=== PATIENT | male | born 1955 | race Caucasian/White ===

== ENCOUNTER → 2024-01-04 | Outpatient (CLI) | payer OTHER, SELFPAY ==
[2024-01-04 11:26] LABS: PSA,Total - Annual Screen 2.12 ng/mL (0.00-4.00)
== END | disposition home or self-care (01) ==
LOC: LAB 10:33
PROVIDERS: PCP Nurse Practitioner Family; Referring Provider Urology; Visit Provider Urology
DX: Z12.5 Encounter for screening for malignant neoplasm of prostate (principal)
CPT/HCPCS: 36415; 84153; G0103

== ENCOUNTER 2025-05-05 07:38 | Day surgery (SDC) | payer OTHER, SELFPAY ==
--- NOTE | 2025-05-02 17:00 | PAT.ANE_ITS ---
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 When Was Last Pacemaker Check QUESTION #4 FULL TEXT: You/Your Family Experience fever (hyperthermia) with Anesthesia Last Oral Intake Last Oral intake: Last Oral Intake NPO since Meds taken in AM with sips of water? 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 Female Yes 05/02/25 11:45 HX of Motion Sickness No 05/02/25 11:45 HX of N/V After Surgery No 05/02/25 11:45 Non-Smoker No 05/02/25 11:45 Duration of Surgery greater Yes 05/02/25 11:45 than 60 minutes Number of Risk Factors 2 05/02/25 11:45 PONV Score Moderate Risk 05/02/25 11:45 Respiratory Assessment Respiratory Assessment - multiple drum sander helper: Respiratory Tract Infection Hx - multiple drum sander helper Hx Respiratory Tract Infection No 05/02/25 11:45 STOP Sleep Apnea STOP Sleep Apnea - multiple drum sander helper: STOP Sleep Apnea - multiple drum sander helper Hx Hypertension No 05/02/25 11:45 Hx Sleep Apnea No 05/02/25 11:45 CPAP BIPAP Do you snore loudly (louder Yes 05/02/25 11:45 than talking or can be heard Do you often feel tired/ No 05/02/25 11:45 fatigued/ sleepy during daytime? Has anyone observed you stop No 05/02/25 11:45 breathing during sleep? STOP Results Negative 05/02/25 11:45 QUESTION #5 FULL TEXT : Do you snore loudly (louder than talking or can be heard through closed doors)? 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 Specify any problems Hx of Preganancy in last 3 N/A 05/02/25 11:45 Months Nurse Filling Out Transfusion [email or web address] 05/02/25 11:45 & Questions: Date: 05/02/25 05/02/25 11:45 Time: 11:52 05/02/25 11:45 Patient unable to answer at this time (ie. confused, unrespo /Reproduction History /Reproductive History - multiple drum sander helper: /Reproductive Hx- multiple drum sander helper Hx Now Gestational Age (in weeks): EDC: Hx Hx Para Hx Section SAB Does the father of the baby or his family experience fever w Father of the baby Malignant Hypertension history comment PFSH Medical History (Updated 05/02/25 @ 12:01 by Jostin Calderon) Wears glasses Ambulates with cane BPH (benign prostatic hyperplasia) Smoker Leg cramps History of echocardiogram Hemochromatosis Home Medications ?Medication ?Instructions ?Recorded ?Last Taken ?Type lactobacillus combination no.4 3 3,000 mmu cells PO DA DL 05/02/25 Unknown History billion cell capsule (Probiotic) multivitamin 1 tab PO DAILY 05/02/25 Unkn own History tamsulosin 0.4 mg capsule 0.4 mg PO QHS 05/02/25 Unkno wn History turmeric 400 mg capsule 400 mg PO DAILY 05/02/25 Unk nown History Allergy/AdvReac Type Severity Reaction Status Date / Time No Known Allergies Allergy Verified 05/02/25 11:43 Surgical History (Updated 05/02/25 @ 12:01 by Jostin Calderon) History of ankle surgery Social History Smoking Status: Never smoker Audit: Pertinent Findings Pertinent Findings Consult pertinent findings: Hematology note 05/01/2025. 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 Ferritin 1819. Recommendations baseline labs today. Liver MRI and echo. Plan weekly phlebotomy with serial ferritin measurements to guide overall frequency of phlebotomy. I see no reason this should interfere with planned foot surgery. Recommendation Anesthesia Recommendation Anesthesia recommendation: OPTIMIZED for anesthesia
[2025-05-04 14:37] LABS: Magnesium 2.2 mg/dL (1.5-2.2)
[2025-05-05] VITALS (11 sets, daily range): BP systolic 104–132; BP diastolic 69–85; PULSE 47–58; RESP 14–16; TEMP 36.1–36.9; O2SAT 97–100; BMI 24.8
--- OUTSIDE RECORDS SUMMARY | 2025-05-05 07:53 | XMS RPT_ITS | CCD ---
Author Organization [facility] Inform ion Partnership [facility] Care Team Providers Care Real Estate Representative Name Role Phone PRITI YE, NIRMAL Palencia Unavailable ORTHOPEDICS, SHAMEKA Unavailable ORTHOPEDICS, GENERAL Unavailable Unavailable GEETHA Unavailable Unavailable Connie VAIL, Kalyani Unavailable Unavailable PAIGE YE, BRENDA Chowdhury Unavailable [phone] Denice Miller Unavailable Unavailable Antonia ELLINGTON MD Unavailable Leah Santamaria Unavailable Unavailable MERARI HERMAN Unavailable Unavailable Unavailable Unavailable MEREDITH ALLEN-ROSALINA Juan Unavailable ROSALINA MARTINEZ Unavailable Unav ailable Antonia ELLINGTON Attending Unavailable Antonia ELLINGTON Consulting Unavailable Antonia ELLINGTON Primary Care Unavailable Antonia ELLINGTON Admitting Unavailable PROVIDER, UNKNOWN Consulting Unavailable PROVIDER, UNKNOWN Consulting Unavailable PROVIDER, UNKNOWN Consulting Unavailable HEMATOLOGY, GENERAL Unavailable Unavailable Valentin Mcleod Attending Unavailable Meredith OSEGUERA, Rosalina Primary Care Unavailab le Medications Current Medications Medication Drug Class(es) Dates Sig (Normalized) Sig (Original) tamsulosin hydrochloride 0.4 mg oral capsule (17 sources) alpha-Adrenergic Bushra Flomax 0.4 mg capsule ; 1 daily (0.4 mg) Completed/Discontinued Medications Medication Drug Class(es) Dates Sig (Normalized) Sig (Original) amoxicillin 500 mg oral capsule (20 sources) Penicillin-class Antibacterial Start: 07-15-2021 End: 07-22-2021 take 1 capsule by mouth three times daily Amoxicillin 500 MG Oral Capsule ; 1 (one) Capsule three times daily for 7 days Quantity: 21 {Capsule} Refills: 0 Ordered: 03-Jan-2022 MD NIRMAL MARCOS Start: 15-Jul-2021 End: 22-Jul-2021 Status: Inactive Start: 09-28-2013 End: 10-08-2013 take 1 capsule by mouth three times daily AMOXICILLIN, 500MG (Oral Capsule) ; 1 (one) Capsule Capsule three times daily for 10 days Quantity: 30 {Capsule} Refills: 0 Ordered: 09-May-2014 MD Antonia ELLINGTON Start: 28-Sep-2013 End: 08-Oct-2013 Status: Inactive Start: 01-05-2012 End: 01-26-2012 take 1 tablet by mouth three times daily AMOXICILLIN, 500MG (Oral Tablet) ; 1 Tablet three times daily for 0 days Quantity: 42 {Tablet} Refills: 0 Ordered: 26-Jan-2012 GENNA Hutson Start: 05-Jan-2012 End: 26-Jan-2012 Status: Inactive amoxicillin 875 mg / clavulanate 125 mg oral tablet (20 sources) Penicillin-class Antibacterial Start: 10-16-2023 End: 10-26-2023 amoxicillin 875 mg-potassium clavulanate 125 mg tablet ; 1 (one) Tablet two times daily for 10 days Quantity: 20 {Tablet} Refills: 0 Ordered: 23-Nov-2023 SONNY HASTINGS Start: 16-Oct-2023 End: 26-Oct-2023 Status: Inactive azithromycin 250 mg oral tablet (20 sources) Macrolide Antimicrobial Start: 06-25-2017 End: 06-30-2017 Azithromycin 250 MG Oral Tablet ; 2 (two) Tablet on day one, then 1 tablet daily for 4 days for 5 days Quantity: 6 {Tablet} Refills: 0 Ordered: 04-Jun-2020 MD NIRMAL MARCOS Start: 25-Jun-2017 End: 30-Jun-2017 Status: Inactive Start: 09-28-2013 End: 10-03-2013 AZITHROMYCIN, 250MG (Oral Ta blet) ; 2 x 1 then 1 x 4 Tablet Tablet daily for 5 days Quantity: 6 {Tablet} Refills: 0 Ordered: 03-Oct-2013 Start: 28-Sep-2013 End: 03-Oct-2013 Status: Inactive Comments: take two tablets day one and then one tablet daily for 4 days Start: 09-02-2010 End: 01-05-2012 AZITHROMYCIN, 250MG (Oral Ta blet) ; Tablet daily for 0 days Quantity: 6 {Tablet} Refills: 0 Ordered: 05-Jan-2012 Start: 02-Sep-2010 End: 05-Jan-2012 Status: Inactive Comments: take two tablets day one and then one tablet daily for 4 days Comment on above: take two tablets day one and then one tablet daily for 4 days cefprozil 500 mg oral tablet (20 sources) Cephalosporin Antibacterial Start: End: take 1 tablet by mouth twice daily CEFPROZIL, 500MG (Oral Tablet) ; 1 (one) Tablet two times daily for 14 days Quantity: 28 {Tablet} Refills: 0 Ordered: 28-Sep-2013 MD Antonia ELLINGTON Start: 19-Oct-2012 End: 02-Nov-2012 Status: Inactive cephalexin 500 mg oral capsule (20 sources) Cephalosporin Antibacterial Start: End: take 1 capsule by mouth four times daily CEPHALEXIN, 500MG (Oral Capsule) ; 1 (one) Capsule qid for 7 days Quantity: 28 {Capsule} Refills: 0 Ordered: 09-May-2014 MD Antonia ELLINGTON Start: 01-Oct-2013 End: 08-Oct-2013 Status: Inactive codeine phosphate 2 mg/ml / guaiFENesin 20 mg/ml oral solution (20 sources) Opioid Agonist Start: 011 End: 011 MYTUSSIN AC, 100-10MG/5ML (Oral Syrup) ; 1 (one) Teaspoon(s) four times daily, as needed for 5 days Quantity: 1 {bottle(s)} Refills: 0 Ordered: 09-Sep-2010 MD Antonia ELLINGTON Start: 02-Sep-2010 End: 07-Sep-2010 Status: Inactive Comments: Medication taken as needed. Comment on above: Medication taken as needed. fluticasone propionate 0.05 mg/actuat metered dose nasal spray (20 sources) Corticosteroid Start: End: take 2 spray(s) by inhalation once daily Fluticasone Propionate 50 MCG/ACT Nasal Suspension ; 2 (two) sprays daily for 30 days Quantity: 1 {Inhaler} Refills: 4 Ordered: 25-Jun-2017 GENNA Hutson Start: 28-Sep-2013 End: 25-Jun-2017 Status: Inactive 12 hr guaiFENesin 600 mg / pseudoephedrine hydrochloride 60 mg extended release oral tablet (20 sources) alpha-Adrenergic Agonist Start: 018 End: Mucinex D 60-600 mg oral Tablet, Extended Release 12 hr ; 1 (one) Tablet two times daily, as needed for 0 days Quantity: 18 {Tablet} Refills: 0 Ordered: 29-May-2022 Start: 15-Jul-2021 End: 29-May-2022 Status: Inactive Comments: Medication taken as needed. Start: 10-19-2012 End: 10-28-2012 MUCINEX D, 120-1200MG (Oral Tablet Extended Release 12 Hour) ; 1 (one) Tablet ER 12HR two times daily, as needed for 9 days Quantity: 18 {Tablet_ER_12HR} Refills: 0 Ordered: 28-Sep-2013 MD Antonia ELLINGTON Start: 19-Oct-2012 End: 28-Oct-2012 Status: Inactive Comments: Medication taken as needed. Comment on above: Medication taken as needed. hydrocortisone 10 mg/ml / neomycin 3.5 mg/ml / polymyxin b 43031 unt/ml otic suspension (20 sources) Aminoglycoside Antibacterial, Polymyxin-class Antibacterial, Corticosteroid Start: 01-05-2012 End: 01-26-2012 INZGSLZC-EYXKLAHOG-PD , 3.5-31870-0 (Otic Suspension) ; 4-5 drop(s) in left ear at bedtime for 0 days Quantity: 5 {Milliliter} Refills: 0 Ordered: 26-Jan-2012 GENNA Hutson Start: 05-Jan-2012 End: 26-Jan-2012 Status: Inactive predniSONE 10 mg oral tablet (20 sources) Start: 05-29-2022 End: 06-10-2022 predniSONE 10 mg oral tablet ; 4 Tablets days 1,2,3; 3 tablets days 4,5,6: 2 tablets days 7,8,9: 1 tablet days 10,11,12 for 12 days Quantity: 30 {Tablet} Refills: 0 Ordered: 10-Jun-2022 MD NIRMAL MARCOS Start: 29-May-2022 End: 10-Jun-2022 Status: Inactive Comments: Take with food.medication to be dispensed in office Comment on above: Take with food.medic ation to be dispensed in office sulfamethoxazole 800 mg / trimethoprim 160 mg oral tablet (20 sources) Dihydrofolate Reductase Inhibitor Antibacterial, Sulfonamide Antimicrobial Bactrim DS 800 mg-160 mg tablet ; 1 twice daily (800-160 mg) Status: Inactive Comments: x 10 days Comment on above: x 10 days terbinafine 250 mg oral tablet (20 sources) Allylamine Antifungal Start: 11-25-2023 End: 02-02-2024 terbinafine HCL 250 mg tablet ; 1 (one) tablet daily for 42 days Quantity: 42 {Tablet} Refills: 1 Ordered: 02-Feb-2024 GENNA Hutson Start: 25-Nov-2023 End: 02-Feb-2024 Status: Inactive Problems Active Problems Problem Classification Problem Date Documented Date Episodic/Chronic Acquired foot deformities (10 sources) Hallux valgus (acquired), left foot; Translations: [Hallux valgus (acquired)] 04-21-2025 Chronic Acute bronchitis (20 sources) Acute bronchitis; Translations: [Acute bronchitis, unspecified] 09-02-2010 Episodic Administrative/social admission (20 sources) Patient encounter status; Translations: [Counseling, unspecified] 10-16-2023 Episodic Diseases of white blood cells (20 sources) Leukocytosis; Translations: [Elevated white blood cell count, unspecified] 02-02-2024 Chronic Disorders of teeth and jaw (20 sources) Abscess of hard palate; Translations: [Inflammatory conditions of jaws] 10-01-2013 Episodic Comment on above: right Immunizations and screening for infectious disease (10 sources) Requires diphtheria, tetanus and pertussis vaccination; Translations: [Encounter for immunization] 04-21-2025 Episodic Mycoses (20 sources) Tinea pedis; Translations: [Tinea pedis] 11-25-2023 Episodic Other connective tissue disease (20 sources) Other symptoms and signs involving the musculoskeletal system; Translations: [Other musculoskeletal symptoms referable to limbs] 05-29-2022 Episodic Other connective tissue disease (20 sources) Olecranon bursitis; Translations: [Olecranon bursitis, unspecified elbow] 09-03-2010 Episodic Other connective tissue disease (20 sources) Bursitis of elbow; Translations: [Other bursitis of elbow, right elbow] 10-16-2023 Episodic Other ear and sense organ disorders (2 sources) Impacted cerumen of bilateral ears; Translations: [Impacted cerumen, bilateral] 10-16-2023 Episodic Other liver diseases (20 sources) Increased bilirubin level; Translations: [Unspecified jaundice] 02-02-2024 Episodic Other nutritional; endocrine; and metabolic disorders (20 sources) Hereditary hemochromatosis; Translations: [Hereditary hemochromatosis] Onset: 01-14-2024 02-09-2024 Chronic Comment on above: 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 Other upper respiratory infections (20 sources) Chronic sinusitis; Translations: [Chronic sinusitis, unspecified] 06-25-2017 Chronic Other upper respiratory infections (20 sources) Acute upper respiratory infection; Translations: [Acute upper respiratory infection, unspecified] 09-28-2013 Episodic Otitis media and related conditions (20 sources) Otitis media of left ear; Translations: [Otitis media, unspecified, left ear] 01-26-2012 Episodic Residual codes; unclassified (20 sources) Family history of hemochromatosis; Translations: [Family history of other endocrine, nutritional and metabolic diseases] 02-02-2024 Episodic Screening and history of mental health and substance abuse codes (10 sources) Ex-smoker; Translations: [Personal history of nicotine dependence] 04-21-2025 Episodic Urinary tract infections (20 sources) Acute urinary tract infection; Translations: [Urinary tract infection, site not specified] 11-25-2023 Episodic Past or Other Problems Problem Classification Problem Date Documented Da te Episodic/Chronic Headache; including migraine (20 sources) Headache; including migraine 06-25-2017 Otitis media and related conditions (20 sources) Otitis media and related conditions 01-26-2012 Unclassified (20 sources) Ear Discharge - The history today is reported by the patient. Symptoms include ear discharge (yellow), ear fullness, ear itching, ear pain and dizziness (at times). Symptoms are located in both ears. Onset was 1 month(s) ago. Associated symptoms do not include cough, fever, headache, nasal congestion or sore throat. 10-16-2023 Unclassified (19 sources) Follow-up after ER visit - The diagnosis of right side sciatica. The ER visit was at [facility]. Date:05/20/22. Note for Follow-up after ER visit: Pt has had right leg pain/sciatica for about 6-7 weeks. It was getting worse and he went to ER. They gave him prednisone, Flexeril, and Percocet. He is feeling a little better, but still has some pain and his right leg is very weak. He is using crutches to walk. 06-13-2022 Unclassified (19 sources) [ADDITIONAL REASON] Transition into care - The patient is transitioning into care from an emergency room and a summary of care was reviewed. 06-13-2022 Unclassified (20 sources) Ear blocked - The onset of the blocked ear has been acute and has been occurring in a persistent pattern for 2 weeks. It affects both ears (left worse than right) . There has been associated ear discharge (yellow) and nasal congestion, while there has been no fever. 07-15-2021 Unclassified (20 sources) Mouth pain - Note for Mouth pain: Recheck of hard palate abscess. Saw Dr Gibson on 09/28/13, given Amoxicillin and Rocephin. Patient reports improvement, less painful. Here for exam. 10-01-2013 Unclassified (20 sources) Sinus pain - The sinus pain has been occurring for 3 days (cough x 1 week). The pain is located in the right side. There has been associated cough (yellow), ear pain (right), fever, low grade fever, sore throat and swollen lymph glands, while there has been no runny nose. Note for Sinus pain: C/o swollen gums. 09-28-2013 Unclassified (20 sources) Sinus pain - The sinus pain has been occurring for 1 month. It is characterized as a pressure sensation. There has been associated runny nose, while there has been no cough. Note for Sinus pain: Here for exam. 10-19-2012 Unclassified (20 sources) Ear Discharge - Symptoms include ear discharge, ear fullness (decreased hearing), ear itching and ear pain. Symptoms are located in the left ear. Onset was 3 day(s) ago. Note for Ear Discharge: . 01-05-2012 Unclassified (20 sources) Cough - The onset of the cough has been acute and has been occurring for 1 week. Note for Cough: also check red swollen left elbow. No injury. 09-02-2010 Unclassified (7 sources) Transition into care - The patient is transitioning into care from an emergency room and a summary of care was reviewed. 06-13-2022 Unclassified (7 sources) [ADDITIONAL REASON] Follow-up after ER visit - The diagnosis of right side sciatica. The ER visit was at [facility]. Date:05/20/22. Note for Follow-up after ER visit: Pt has had right leg pain/sciatica for about 6-7 weeks. It was getting worse and he went to ER. They gave him prednisone, Flexeril, and Percocet. He is feeling a little better, but still has some pain and his right leg is very weak. He is using crutches to walk. 06-13-2022 Unclassified (20 sources) Follow-up after ER visit - The patient reports feeling unchanged. Note for Follow-up after ER visit: Pt seen in [place] ER 11/23/23 for UTI symptoms, unable to urinate. Navarro cath inserted. Pt given IV Rocphin and discharged with Bactrim DS BID x [address]. [address] Elaine for follow up-Pt still has navarro catheter in. Abdominal CT done in ER 11-25-2023 Unclassified (17 sources) wants genetic testing - family history of hemochromatosis 02-02-2024 Unclassified (13 sources) !Patient notification of lab results - Dr. Ellington. The test(s) that you had done were/was blood work (Your ferritin was very high at 1468 so I think it's likely that you also have hereditary hemochromatosis. It may take 6 weeks or more for the gene test to get back.Please let us know if you would like to see the specialist sooner or wait until the genetic test is back). You should call our office if you have any questions. 02-04-2024 Unclassified (11 sources) !Patient notification of lab results - Dr. Ellington. The test(s) that you had done were/was blood work (Your test showed that you carry 2 copies of the gene mutation for hemochromatosis and in light of your ferritin level, it appears that you do have the disease. Please let us know if you have a preference as to which radiation therapy technician or financial officer we refer you for evaluation and to start treatment). You should call our office if you have any questions. 02-09-2024 Unclassified (5 sources) Pre-Op Visit - The procedure scheduled is a arthrodesis of the first metatarsel phalangeal joint and bone graft harvest left leg on 05-05-25. The surgeon for the procedure will be Dr Valentin Mcleod. 04-21-2025 Unclassified (2 sources) !Patient notification of lab results - Dr. Ellington. The test(s) that you had done were/was blood work (Your ferritin was 1819 (most hematologists will start treatment at 300). Because there can be cases where you don't recover as well from surgery if your hemochromatosis is not controlled, I am recommending that you see a financial officer to get cleared from the hematology standpoint. They may recommend therapeutic phlebotomy until you are stable at a better ferritin level before you proceed with the surgery. Please let us know which financial officer you would like to see (perhaps the one who sees one or both of your sons?)). You should call our office if you have any questions. 04-23-2025 Results Test Name Value Interpretation Reference Range Facil ity FERRITIN [CCL]on 04-23-2025 Ferritin [Mass/Vol] 1819.0 ng/mL High 30.3-565.7 [facility] Comment on above: Result Comment: [facility] [address] [place] [address] Enzo Dickerson III, M.D. [id number] Performed By: #### 2 [id number] #### [address] [address] CBC + DIFFon 04-21-2025 Baso # 0.03 x10EE3/UL Normal 0.00 - 0.10 [facility] Comment on above: Performed By: #### 2 [id number] #### [address] [address] Basophils/100 WBC (Bld) 0.3 % Normal 0.0 - 2.0 % [facility].; [facility]. Work Phone: Comment on above: Performed By: #### 2 [id number] #### [facility],[address] [place] [address] CBC + DIFF Normal [facility] Comment on above: Result Comment: CBC- COMPLETE BLOOD COUNT Performed By: #### 2 [id number] #### [facility],[address] [place] [address] EO # 0.32 x10EE3/UL Normal 0.00 - 0.50 [facility] Comment on above: Performed By: #### 2 [id number] #### [facility],[address] [place] [address] Eosinophils/100 WBC (Bld) 4.1 % Normal 0.0 - 7.0 % [facility], [facility], [facility] Work Phone: Comment on above: Performed By: #### 2 [id number] #### [facility],[address] [place] [address] Erythrocyte distribution width (RBC) [Ratio] 12.9 % Normal 12.0 - 15.6 % [facility], [facility].; [facility] [employer] [facility] Work Phone: Comment on above: Performed By: #### 2 97305 #### [address] [address] Hematocrit (Bld) [Volume fraction] 41.5 % Normal 40.0 - 52.0 % [facility] [employer] [facility] [place] [facility] Work Phone: Comment on above: Performed By: #### 2 72555 #### [address] [address] Hemoglobin (Bld) [Mass/Vol] 14.5 g/dL Normal 13.0 - 17.5 g/dL [facility] [employer] [facility] [employer] [employer] [facility] [employer] Work Phone: Comment on above: Performed By: #### 2 92789 #### [facility],[address] [place] [address] Lymph # 2.86 x10EE3/UL High 0.80 - 2.80 [facility] Comment on above: Performed By: #### 2 47874 #### [facility],[address] [place] [address] Lymphocytes/100 WBC (Bld) 36.0 % Normal 20.0 - 45.0 % [facility].; [facility], [facility]. Work Phone: Comment on above: Performed By: #### 2 51670 #### [place] [address] MANUAL DIFF N/A Normal [facility].; [facility], [facility]. Work Phone: Comment on above: Performed By: #### 2 69679 #### [place] [id number] MCH (RBC) [Entitic mass] 32 pg Normal 27 - 33 pg [facility].; [facility], [facility]. Work Phone: Comment on above: Performed By: #### 2 36349 #### [place] [address] MCHC 35 X10 3 Normal 32 - 36 [facility] Comment on above: Performed By: #### 2 93214 #### [facility],[address] [place] [address] MCV (RBC) [Entitic vol] 92 fL Normal 81 - 98 fL [facility].; [facility], [facility]. Work Phone: Comment on above: Performed By: #### 2 28010 #### [facility],[address] [place] [address] Hatillo # 0.63 x10EE3/UL Normal 0.20 - 1.00 [facility] Comment on above: Performed By: #### 2 10579 #### [facility],[address] [place] [address] MONOS % 8.0 % Normal 0.0 - 10.0 [facility] Comment on above: Performed By: #### 2 36101 #### [facility],[address] [place] [address] Morphology Nikolai (Bld) [Interp] N/A Normal [facility].; [facility], [facility]. Work Phone: Comment on above: Performed By: #### 2 96025 #### [address] [address] Neut # 4.10 x10EE3/UL Normal 1.50 - 7.10 [facility] Comment on above: Performed By: #### 2 62981 #### [address] [address] Neutrophils/100 WBC (Bld) 51.6 % Normal 46.0 - 76.0 % [facility]; [facility], [facility]. Work Phone: Comment on above: Performed By: #### 2 12744 #### [address] [address] PLATELET 226 x10EE3/UL Normal 150 - 450 [facility] Comment on above: Performed By: #### 2 23903 #### [address] [address] Platelet mean volume (Bld) [Entitic vol] 9.4 fL Normal 6.4 - 10.5 fL [facility].; [facility], [facility]. Work Phone: Comment on above: Result Comment: AUTO MATED DIFFERENTIAL Performed By: #### 2 60329 #### [facility] [place] [address] RBC 4.51 x 10EE6/UL Normal 4.50 - 6.00 [facility] Comment on above: Performed By: #### 2 32781 #### [facility],[address] [place] [address] WBC 7.9 x 10EE3/UL Normal 4.5 - 10.8 [facility] Comment on above: Performed By: #### 2 00301 #### [facility],[address] [place] [address] Ferritin SerPl-ncon 2024 Ferritin [Mass/Vol] 1819.0 ng/mL Abnormal 30.3 - 5 65.7 ng/mL [facility] CenterBB[facility] [employer]; [facility] Work Phone: Comment on above: Order Comment: Speci men Type: BLOOD SPECIMEN Ordering Facility: [facility] Address: [address] [place] [address] Performed By: #### 2 [id number] #### [facility] CLIA [id number] [address] [place] [address] [place] HEMOGLOBIN A1C (POM)on 04-21 Glucose [Mass/Vol] 96.8 mg/dL High 0.0 - 0.0 [facility] Comment on above: Result Comment: BLDo HEMOGLOBIN A1C REFERENCE RANGESBLDo Suggested Diagnosis HbA1c(%) HbA1C (mmol/mol Diabetic >/=6.5 >/=48 Prediabetes 5.7 - 6.4 39 - 47 Normal <5.7 <39 Performed By: #### 2 12122 #### [facility],[address] [place], [place] [id number] HbA1c (Bld) [Mass fraction] 5.0 % Normal 0.0 - 6.5 % [facility]; [facility]. Work Phone: Comment on above: Performed By: #### 2 77007 #### [facility],[address] [place] [address] Laboratory - Chemistry and C hemistry - challengeon 04-21-2025 25-hydroxyvitamin D3 [Mass/Vol] 29.50 ng/mL Abnormal 30.00 - 100 ng/mL [facility].; [facility]. Work Phone: Average glucose Estimated from glycated hemoglobin (Bld) [Mass/Vol] 96.8 mg/dL Abnormal 0.0 - 0.0 mg/dL [facility].; [facility], [facility]. Work Phone: Laboratory - Hematology and Cell countson 04-21-2025 Basophils (Bld) [#/Vol] 0.03 {x10EE3/UL} Normal 0.00 - 0.10 {x10EE3/UL} [facility].; [facility], [facility]. Work Phone: Eosinophils (Bld) [#/Vol] 0.32 {x10EE3/UL} Normal 0.00 - 0.50 {x10EE3/UL} [facility].; [place] [employer] [facility], [facility]. Work Phone: Lymphocytes (Bld) [#/Vol] 2.86 {x10EE3/UL} Abnormal 0.80 - 2.80 {x10EE3/UL} [facility].; [facility], [facility]. Work Phone: MCHC (RBC) [Mass/Vol] 35 {X10_3} Normal 32 - 36 {X10_3 } [facility].; [facility], [facility]. Work Phone: Monocytes (Bld) [#/Vol] 0.63 {x10EE3/UL} Normal 0.20 - 1.00 {x10EE3/UL} [facility].; [facility], [facility]. Work Phone: Monocytes/100 WBC (Bld) 8.0 % Normal 0.0 - 10.0 % [facility].; [facility]. Work Phone: Neutrophils (Bld) [#/Vol] 4.10 {x10EE3/UL} Normal 1.50 - 7.10 {x10EE3/UL} [facility].; [facility]. Work Phone: Platelets (Bld) [#/Vol] 226 {x10EE3/UL} Normal 150 - 450 {x10EE3/UL} [facility].; [facility]. Work Phone: RBC (Bld) [#/Vol] 4.51 {x_10EE6/UL} Normal 4.50 - 6.00 {x_10EE6/UL} [facility].; [facility]. Work Phone: WBC (Bld) [#/Vol] 7.9 {x_10EE3/UL} Normal 4.5 - 10.8 {x_10EE3/UL} [facility].; [facility], [facility]. Work Phone: No Panel Informationon 04-21 CBC + DIFF Normal [facility] HospitalComet [employer]; [facility]. Work Phone: Ferritin SerPl-mCnc 1819.0 ng/mL Abnormal 30.3 - 5 65.7 ng/mL [facility].; [facility]. Work Phone: Performing Lab See Note Normal [facility]; [facility], [facility]. Work Phone: VITAMIN D, 25 HYDROXYon 11-0 VitD 29.50 ng/mL Low 30.00 - 100 [facility] Comment on above: Result Comment: 25-O HD3 indicates both endogenous production and supplementation. 25-OHD2 is an indicator of exogenous sources, such as diet or supplementation. Therapy is based on measurement of Total 25-OHD, with levels <20 ng/mL indicative of Vitamin D deficiency, while levels between 20 ng/mL and 30 ng/mL suggest insufficiency. Optimal levels are >=30ng/mL. Vitamin D, 25-OH D3 Not Established Vitamin D, 25-OH D2 Not Established Performed By: [id number] [facility],[address] [place], [place] [id number] Laboratory - Chemistry and C hemistry - challengeon 02-02-2024 Albumin [Mass/Vol] 4.2 g/dL Normal 3.9 - 4.9 g/dL [facility], [facility]; [facility], [facility] ALP [Catalytic activity/Vol] 110 U/L Normal 44 - 121 [iU]/L [facility].; [facility], [facility]. ALT [Catalytic activity/Vol] 16 U/L Normal 0 - 44 [iU]/L [facility].; [facility], [facility]. AST [Catalytic activity/Vol] 18 U/L Normal 0 - 40 [iU]/L [facility].; [facility], [facility]. Bilirubin [Mass/Vol] 0.5 mg/dL Normal 0.0 - 1.2 mg/dL [facility]; [facility], [facility]. Calcium [Mass/Vol] 9.2 mg/dL Normal 8.6 - 10. 2 mg/dL [facility].; [facility], [facility]. Chloride [Moles/Vol] 106 mmol/L Normal 96 - 106 mmol/L [facility].; [facility], [facility]. CO2 [Moles/Vol] 22 mmol/L Normal 20 - 29 mmol/L [facility].; [facility], [facility] Creatinine [Mass/Vol] 0.64 mg/dL Abnormal 0.76 - 1.27 mg/dL [facility]; [facility] Ferritin [Mass/Vol] 1468 ng/mL Abnormal 30 - 400 ng/mL [facility]; [facility] Globulin (S) [Mass/Vol] 2.3 g/dL Normal 1.5 - 4.5 g/dL [facility]; [facility] Glucose [Mass/Vol] 96 mg/dL Normal 70 - 99 mg/dL [facility]; [facility] Iron [Mass/Vol] 106 ug/dL Normal 38 - 169 ug/dL [facility]; [facility] Potassium [Moles/Vol] 4.3 mmol/L Normal 3.5 - 5.2 mmol/L [facility]; [facility] Protein [Mass/Vol] 6.5 g/dL Normal 6.0 - 8.5 g/dL [facility]; [facility] Sodium [Moles/Vol] 141 mmol/L Normal 134 - 144 mmol/L [facility]; [facility] Urea nitrogen [Mass/Vol] 16 mg/dL Normal 8 - 27 mg/dL [facility]; [facility] Urea nitrogen/Creatinine [Mass ratio] 25 mg/mg Abnormal 10 - 24 [facility]; [facility] Laboratory - Hematology and Cell countson 02-02-2024 Basophils (Bld) [#/Vol] 0.0 10*3/uL Normal 0.0 - 0.2 {x10E3/uL} [facility]; [facility] Basophils/100 WBC (Bld) 1 % Normal [facility]; [facility] Eosinophils (Bld) [#/Vol] 0.4 10*3/uL Normal 0.0 - 0.4 {x10E3/uL} [facility]; [facility] Eosinophils/100 WBC (Bld) 5 % Normal [facility]; [facility] Erythrocyte distribution width (RBC) [Ratio] 13.1 % Normal 11.6 - 15.4 % [facility]; [facility], [facility] Hematocrit (Bld) [Volume fraction] 43.0 % Normal 37.5 - 51.0 % [facility]; [facility] Hemoglobin (Bld) [Mass/Vol] 14.6 g/dL Normal 13.0 - 17.7 g/dL [facility]; [facility], [facility] Immature granulocytes (Bld) [#/Vol] 0.0 10*3/uL Normal 0.0 - 0.1 {x10E3/uL} [facility].; [facility], [facility] Immature granulocytes/100 WBC (Bld) 0 % Normal [facility]; [facility], [facility] Lymphocytes (Bld) [#/Vol] 3.0 10*3/uL Normal 0.7 - 3.1 {x10E3/uL} [facility].; [facility], [facility] Lymphocytes/100 WBC (Bld) 38 % Normal [facility]; [facility], [facility] MCH (RBC) [Entitic mass] 31.7 pg Normal 26.6 - 33.0 pg [facility].; [facility], [facility]. MCHC (RBC) [Mass/Vol] 34.0 g/dL Normal 31.5 - 35.7 g/dL [facility].; [facility], [facility]. MCV (RBC) [Entitic vol] 94 fL Normal 79 - 97 fL [facility].; [facility], [facility] Monocytes (Bld) [#/Vol] 0.8 10*3/uL Normal 0.1 - 0.9 {x10E3/uL} [facility]; [facility], [facility] Monocytes/100 WBC (Bld) 10 % Normal [facility].; [facility] Neutrophils (Bld) [#/Vol] 3.7 10*3/uL Normal 1.4 - 7.0 {x10E3/uL} [facility].; [facility] Neutrophils/100 WBC (Bld) 46 % Normal [facility].; [facility] Platelets (Bld) [#/Vol] 209 10*3/uL Normal 150 - 450 {x10E3/uL} [facility].; [facility], [facility] RBC (Bld) [#/Vol] 4.60 10*6/uL Normal 4.14 - 5.8 0 {x10E6/uL} [facility].; [facility], [facility]. WBC (Bld) [#/Vol] 7.9 10*3/uL Normal 3.4 - 10.8 {x10E3/uL} [facility].; [facility], [facility] No Panel Informationon 02-01 Interpretation HFE (Hemochromatosis) Normal [facility]; [facility], [facility] Work Phone: INTERPRETATION (HEMDNA) Normal [facility].; [facility], [facility] Performing Lab See Note Normal [facility].; [facility], [facility] No Panel Informationon 01-03 PSA,TOT SCREEN 2.12 ng/mL Normal 0.00 - 4.00 ng/mL [facility].; [facility], [facility] Work Phone: Laboratory - Chemistry and C hemistry - challengeon 11-22-2023 Albumin [Mass/Vol] 3.8 g/dL Normal 3.4 - 5.0 g/dL [facility]; [facility] Work Phone: Albumin [Mass/Vol] 1.2 g/dL Normal 0.9 - 1.6 [facility]; [facility] Work Phone: ALT [Catalytic activity/Vol] 23 U/L Normal 16 - 63 U/L [facility]; [facility] Work Phone: Anion gap [Moles/Vol] 12 mmol/L Normal 10 - 20 mmol/L [facility]; [facility] Work Phone: AST [Catalytic activity/Vol] 21 U/L Normal 15 - 37 U/L [facility]; [facility] Work Phone: Bilirubin [Mass/Vol] Negative Normal [facility]; [facility] Work Phone: Bilirubin [Mass/Vol] 1.5 mg/dL Abnormal 0.2 - 1.0 mg/dL [facility]; [facility] Work Phone: Calcium [Mass/Vol] 9.0 mg/dL Normal 8.5 - 10. 1 mg/dL [facility]; [facility] Work Phone: Chloride [Moles/Vol] 101 mmol/L Normal 98 - 107 mmol/L [facility]; [facility] Work Phone: CO2 [Moles/Vol] 26.9 mmol/L Normal 21.0 - 32.0 mmol/L [facility]; [facility] Work Phone: Creatinine [Mass/Vol] 0.82 mg/dL Normal 0.70 - 1.30 mg/dL [facility]; [facility] Work Phone: CRP [Mass/Vol] 4.97 mg/dL Abnormal 0.00 - 0.90 mg/dL [facility]; [facility] Work Phone: GFR/1.73 sq M.predicted among blacks MDRD (S/P/Bld) [Vol rate/Area] mL/min/{1.73_m2} Normal 60 - 999 {ML/MINUTE} [facility]; [facility] Work Phone: GFR/1.73 sq M.predicted MDRD (S/P/Bld) [Vol rate/Area] mL/min/{1.73_m2} Normal 60 - 999 {ML/MINUTE} [facility]; [facility] Work Phone: Globulin (S) [Mass/Vol] 3.2 g/dL Normal 1.5 - 3.8 g/dL [facility]; [facility] Work Phone: Glucose [Mass/Vol] NORM Normal [facility]; [facility] Work Phone: Glucose [Mass/Vol] 101 mg/dL Normal 74 - 106 mg/dL [facility]; [facility] Work Phone: Lipase [Catalytic activity/Vol] 17.0 U/L Normal 15.0 - 78.0 U/L [facility]; [facility] Work Phone: pH (Bld) 6 [pH] Normal [facility]; [facility] Work Phone: Potassium [Moles/Vol] 3.7 mmol/L Normal 3.5 - 5.1 mmol/L [facility]; [facility] Work Phone: Protein [Mass/Vol] 15 g/dL Abnormal [facility]; [facility] Work Phone: Protein [Mass/Vol] 7.0 g/dL Normal 6.4 - 8.2 g/dL [facility]; [facility] Work Phone: Sodium [Moles/Vol] 136 mmol/L Normal 136 - 145 mmol/L [facility]; [facility] Work Phone: Urea nitrogen [Mass/Vol] 12 mg/dL Normal 7 - 18 mg/dL [facility]; [facility] Work Phone: Urea nitrogen/Creatinine [Mass ratio] 15 {ratio} Normal 0 - 30 {ratio} [facility]; [facility] Work Phone: Laboratory - Hematology and Cell countson 11-22-2023 Basophils (Bld) [#/Vol] 0.02 {x10EE3/UL} Normal 0.00 - 0.10 {x10EE3/UL} [facility]; [facility] Work Phone: Basophils/100 WBC (Bld) 0.1 % Normal 0.0 - 2.0 % [facility]; [facility] Work Phone: Eosinophils (Bld) [#/Vol] 0.20 {x10EE3/UL} Normal 0.00 - 0.50 {x10EE3/UL} [facility]; [facility] Work Phone: Eosinophils/100 WBC (Bld) 1.2 % Normal 0.0 - 7.0 % [facility]; [facility] Work Phone: Erythrocyte distribution width (RBC) [Ratio] 13.3 % Normal 12.0 - 15.6 % [facility]; [facility] Work Phone: Hematocrit (Bld) [Volume fraction] 44.7 % Normal 40.0 - 52.0 % [facility]; [facility] Work Phone: Hemoglobin (Bld) [Mass/Vol] 15.4 g/dL Normal 13.0 - 17.5 g/dL [facility]; [facility] Work Phone: Lymphocytes (Bld) [#/Vol] 1.69 {x10EE3/UL} Normal 0.80 - 2.80 {x10EE3/UL} [facility]; [facility] Work Phone: Lymphocytes/100 WBC (Bld) 9.8 % Abnormal 20.0 - 45.0 % [facility]; [facility] Work Phone: MCH (RBC) [Entitic mass] 32 pg Normal 27 - 33 pg [facility]; [facility] Work Phone: MCHC (RBC) [Mass/Vol] 34 {X10_3} Normal 32 - 36 {X10_3 } [facility]; [facility] Work Phone: MCV (RBC) [Entitic vol] 92 fL Normal 81 - 98 fL [facility]; [facility] Work Phone: Monocytes (Bld) [#/Vol] 1.62 {x10EE3/UL} Abnormal 0.20 - 1.00 {x10EE3/UL} [facility]; [facility] Work Phone: Monocytes/100 WBC (Bld) 9.4 % Normal 0.0 - 10.0 % [facility]; [facility] Work Phone: Morphology Nikolai (Bld) [Interp] N/A Normal [facility]; [facility] Work Phone: Neutrophils (Bld) [#/Vol] 13.65 {x10EE3/UL} Abnormal 1.50 - 7.10 {x10EE3/UL} [facility]; [facility] Work Phone: Neutrophils/100 WBC (Bld) 79.5 % Abnormal 46.0 - 76.0 % [facility]; [facility] Work Phone: Platelet mean volume (Bld) [Entitic vol] 9.1 fL Normal 6.4 - 10.5 fL [facility]; [facility] Work Phone: Platelets (Bld) [#/Vol] 180 {x10EE3/UL} Normal 150 - 450 {x10EE3/UL} [facility]; [facility] Work Phone: RBC (Bld) [#/Vol] 4.85 {x_10EE6/UL} Normal 4.50 - 6.00 {x_10EE6/UL} [facility].; [facility] Work Phone: WBC (Bld) [#/Vol] 500 10*3/uL Abnormal [facility].; [facility]. Work Phone: WBC (Bld) [#/Vol] 17.2 {x_10EE3/UL} Abnormal 4.5 - 10.8 {x_10EE3/UL} [facility].; [facility]. Work Phone: Laboratory - Microbiology an d Antimicrobial susceptibilityon 11-22-2023 Bacteria identified Cx Nom (U) See Note Abnormal [facility].; [facility]. Work Phone: Bacteria identified Cx Nom (Unsp spec) 3+ Normal [facility].; [facility] Work Phone: Laboratory - Specimen inform ationon 11-22-2023 Clarity (U) sl.cloudy Normal [facility].; [facility]. Work Phone: Color (U) yellow Normal [facility].; [facility]. Work Phone: Specimen type Nom (Spec) Catheter Normal [facility].; [facility] Work Phone: Laboratory - Urinalysison Crystals LM Nom (Urine sed) NONE Normal [facility].; [facility] Work Phone: Nitrite Ql (U) Positive Normal [facility].; [facility]. Work Phone: Yeast LM Ql (Urine sed) NONE Normal [facility].; [facility]. Work Phone: No Panel Informationon 11-21 AGE 68 {years} Normal [facility].; [facility]. Work Phone: ALK PHOS 114 U/L Normal 46 - 116 U/L [facility].; [facility]. Work Phone: Amorphous NONE Normal [facility].; [facility]. Work Phone: Blood 250 Abnormal [facility].; [facility]. Work Phone: Casts NONE Normal [facility].; [facility]. Work Phone: CBC + DIFF Normal [facility].; [facility] [facility]. Work Phone: CMP with eGFR Normal [facility].; [facility]. Work Phone: Epi Cells OCC Normal [facility].; [facility]. Work Phone: Ketone 5 Abnormal [facility] [employer] [facility].; [employer] [facility] [employer] [facility]. Work Phone: MANUAL DIFF N/A [employer] [facility] [employer] [facility] [employer].; [email or web address] [facility] [employer] [facility] [employer]. Work Phone: Microscopic SEE BELOW Normal [facility] [employer] [facility] Healthcare[facility].; [email or web address] Work Phone: Mucous NONE Normal [facility]; [facility] Work Phone: Rbc 0-5 Normal 0 - 3 [facility]; [facility] Work Phone: Sp Lostine 1.010 Normal [facility]; [facility] Work Phone: Urobilinog NORM Normal [facility]; [facility] Work Phone: Wbc 11-15 Normal 0 - 5 [facility]; [facility] Work Phone: Laboratory - Chemistry and C hemistry - challengeon 05-20-2022 Albumin [Mass/Vol] 3.8 g/dL Normal 3.4 - 5.0 g/dL [facility]; [facility] Work Phone: Albumin [Mass/Vol] 1.2 g/dL Normal 0.9 - 1.6 [facility]; [facility] Work Phone: ALT [Catalytic activity/Vol] 26 U/L Normal 16 - 63 U/L [facility]; [facility] Work Phone: Anion gap [Moles/Vol] 13 mmol/L Normal 10 - 20 mmol/L [facility]; [facility] Work Phone: AST [Catalytic activity/Vol] 22 U/L Normal 15 - 37 U/L [facility]; [facility] Work Phone: Bilirubin [Mass/Vol] 0.8 mg/dL Normal 0.2 - 1.0 mg/dL [facility]; [facility]. Work Phone: Calcium [Mass/Vol] 8.7 mg/dL Normal 8.5 - 10. 1 mg/dL [facility]; [facility] Work Phone: Chloride [Moles/Vol] 106 mmol/L Normal 98 - 107 mmol/L [facility]; [facility] Work Phone: CO2 [Moles/Vol] 28.0 mmol/L Normal 21.0 - 32.0 mmol/L [facility]; [facility] Work Phone: Creatinine [Mass/Vol] 0.68 mg/dL Abnormal 0.70 - 1.30 mg/dL [facility]; [facility]. Work Phone: CRP [Mass/Vol] mg/L Normal 0.00 - 0.90 mg/dL [facility]; [facility] Work Phone: GFR/1.73 sq M.predicted among blacks MDRD (S/P/Bld) [Vol rate/Area] mL/min/{1.73_m2} Normal 60 - 999 {ML/MINUTE} [facility].; [facility]. Work Phone: GFR/1.73 sq M.predicted MDRD (S/P/Bld) [Vol rate/Area] mL/min/{1.73_m2} Normal 60 - 999 {ML/MINUTE} [facility].; [facility]. Work Phone: Globulin (S) [Mass/Vol] 3.3 g/dL Normal 1.5 - 3.8 g/dL [facility]; [facility] Work Phone: Glucose [Mass/Vol] 132 mg/dL Abnormal 74 - 106 mg/dL [employer] [facility]; [facility] Work Phone: Lipase [Catalytic activity/Vol] 72.0 U/L Abnormal 73.0 - 393 U/L [facility]; [facility] Work Phone: Potassium [Moles/Vol] 4.1 mmol/L Normal 3.5 - 5.1 mmol/L [facility]; [facility] Work Phone: Prostate specific Ag [Mass/Vol] 2.96 ng/mL Normal 0.00 - 4.00 ng/mL [facility]; [facility] Work Phone: Protein [Mass/Vol] 7.1 g/dL Normal 6.4 - 8.2 g/dL [facility]; [facility] Work Phone: Sodium [Moles/Vol] 143 mmol/L Normal 136 - 145 mmol/L [facility]; [facility] Work Phone: Urea nitrogen [Mass/Vol] 16 mg/dL Normal 7 - 18 mg/dL [facility]; [facility] Work Phone: Urea nitrogen/Creatinine [Mass ratio] 24 {ratio} Normal 0 - 30 {ratio} [facility]; [facility] Work Phone: Laboratory - Hematology and Cell countson 05-20-2022 Basophils (Bld) [#/Vol] 0.10 {x10EE3/UL} Normal 0.00 - 0.10 {x10EE3/UL} [facility]; [facility] Work Phone: Basophils/100 WBC (Bld) 0.7 % Normal 0.0 - 2.0 % [facility]; [facility] Work Phone: Eosinophils (Bld) [#/Vol] 0.40 {x10EE3/UL} Normal 0.00 - 0.50 {x10EE3/UL} [facility]; [facility] Work Phone: Eosinophils/100 WBC (Bld) 4.6 % Normal 0.0 - 7.0 % [facility]; [facility] Work Phone: Erythrocyte distribution width (RBC) [Ratio] 13.5 % Normal 12.0 - 15.6 % [facility]; [facility] Work Phone: Hematocrit (Bld) [Volume fraction] 42.8 % Normal 40.0 - 52.0 % [facility]; [facility] Work Phone: Hemoglobin (Bld) [Mass/Vol] 14.5 g/dL Normal 13.0 - 17.5 g/dL [facility]; [facility] Work Phone: Lymphocytes (Bld) [#/Vol] 3.30 {x10EE3/UL} Abnormal 0.80 - 2.80 {x10EE3/UL} [facility]; [facility] Work Phone: Lymphocytes/100 WBC (Bld) 41.7 % Normal 20.0 - 45.0 % [facility]; [facility]. Work Phone: MCH (RBC) [Entitic mass] 31 pg Normal 27 - 33 pg [facility].; [facility]. Work Phone: MCHC (RBC) [Mass/Vol] 34 {X10_3} Normal 32 - 36 {X10_3 } [facility].; [facility]. Work Phone: MCV (RBC) [Entitic vol] 91 fL Normal 81 - 98 fL [facility]; [facility]. Work Phone: Monocytes (Bld) [#/Vol] 0.70 {x10EE3/UL} Normal 0.20 - 1.00 {x10EE3/UL} [facility].; [facility]. Work Phone: Monocytes/100 WBC (Bld) 8.8 % Normal 0.0 - 10.0 % [facility].; [facility]. Work Phone: Morphology Nikolai (Bld) [Interp] N/A Normal [facility]; [facility]. Work Phone: Neutrophils (Bld) [#/Vol] 3.50 {x10EE3/UL} Normal 1.50 - 7.10 {x10EE3/UL} [facility].; [facility]. Work Phone: Neutrophils/100 WBC (Bld) 44.2 % Abnormal 46.0 - 76.0 % [facility] [employer]; [facility] Work Phone: Platelet mean volume (Bld) [Entitic vol] 9.7 fL Normal 6.4 - 10.5 fL [facility]; [facility] Work Phone: Platelets (Bld) [#/Vol] 236 {x10EE3/UL} Normal 150 - 450 {x10EE3/UL} [facility].; [facility] Work Phone: RBC (Bld) [#/Vol] 4.69 {x_10EE6/UL} Normal 4.50 - 6.00 {x_10EE6/UL} [facility].; [facility] Work Phone: WBC (Bld) [#/Vol] 7.8 {x_10EE3/UL} Normal 4.5 - 10.8 {x_10EE3/UL} [facility].; [facility] Work Phone: Laboratory - Microbiology an d Antimicrobial susceptibilityon 05-20-2022 FLUAV+FLUBV Ag Ql (Unsp spec) See Note Normal [facility] [employer]; [facility] Work Phone: S. pyogenes Ag Ql (Throat) See Note Normal [facility].; [facility] Work Phone: SARS-CoV-2 (COVID-19) Ag IA.rapid Ql (Resp) Negative Normal [facility] HospitalCom[facility] [employer]; [facility] Work Phone: No Panel Informationon 05-20 AGE 67 {years} Normal [facility]; [facility]. Work Phone: ALK PHOS 109 U/L Normal 46 - 116 U/L [facility].; [facility]. Work Phone: CBC + DIFF Normal [facility].; [facility], [facility]. Work Phone: CMP with eGFR Normal [facility].; [facility], [facility]. Work Phone: MANUAL DIFF N/A Normal [facility].; [facility]. Work Phone: Observation duration PASS Replaced By [facility].; [facility], [facility]. Work Phone: Observation duration YES [facility].; [facility]. Work Phone: SEND TO IC? YES [facility].; [facility]. Work Phone: Vital Signs Date Time Vital Sign Value Performing Clinician Brent galvin 04-21-2025 13:15-0500 Body height 175.9 cm Angelica Hutson RN [facility], [facility].; [facility], [facility]. 04-21-2025 13:15-0500 Body mass index (BMI) [Ratio] 26.39 kg/m2 Angelica Hutson RN [facility].; [facility], [facility]. 04-21-2025 13:15-0500 Body surface area Derived from formula 1.98 m2 Angelica Hutson RN [facility].; [facility], [facility]. 04-21-2025 13:15-0500 Body weight 81.65 kg Angelica Hutson RN [facility].; [facility], [facility]. 04-21-2025 13:15-0500 Diastolic blood pressure 81 mm[Hg] Angelica Hutson RN [facility], Inc.; [facility], Inc[facility] Comment on above: Patient Position: Sitting; Cuff Location : Left Arm; Cuff Size: Large 04-21-2025 13:15-0500 Heart rate 74 /min Angelica Hutson RN [facility], [facility].; [facility], Inc. Comment on above: Pattern: Regular 04-21-2025 13:15-0500 Systolic blood pressure 117 mm[Hg] Angelica Hutson RN [facility], [facility].; [facility], Inc. Comment on above: Patient Position: Sitting; Cuff Location : Left Arm; Cuff Size: Large 02-02-2024 15:54-0400 Body height 175.9 cm Angelica Hutson RN [facility], [facility].; [facility], Inc[facility] 02-02-2024 15:54-0400 Body mass index (BMI) [Ratio] 26.24 kg/m2 Angelica Hutson RN [facility], [facility].; [facility], Inc[facility] 02-02-2024 15:54-0400 Body surface area Derived from formula 1.98 m2 Angelica Hutson RN [facility], [facility].; [facility], Inc[facility] 02-02-2024 15:54-0400 Body weight 81.19 kg Angelica Hutson RN [facility], [facility].; [facility], Inc[facility] 02-02-2024 15:54-0400 Diastolic blood pressure 79 mm[Hg] Angelica Hutson RN [facility], [facility].; [facility], Inc. Comment on above: Patient Position: Sitting; Cuff Location : Left Arm; Cuff Size: Large 02-02-2024 15:54-0400 Heart rate 67 /min Angelica Hutson RN [facility], [facility].; [employer] [facility], Inc. Comment on above: Pattern: Regular 02-02-2024 15:54-0400 Systolic blood pressure 132 mm[Hg] Angelica Hutson RN [facility] CenterStra[facility].; [facility]. Comment on above: Patient Position: Sitting; Cuff Location : Left Arm; Cuff Size: Large 11-25-2023 13:35-0400 Body height 175.9 cm NIRMAL MARCOS MD Work Phone: [facility]Stra[facility].; [facility]. 11-25-2023 13:35-0400 Body mass index (BMI) [Ratio] 26.24 kg/m2 NIRMAL MARCOS MD Work Phone: [facility]Stra[facility].; [facility]. 11-25-2023 13:35-0400 Body surface area Derived from formula 1.98 m2 NIRMAL MARCOS MD Work Phone: [facility] CenterStra[facility].; [facility]Stra[facility]. 11-25-2023 13:35-0400 Body temperature 98.2 [degF] NIRMAL MARCOS MD Work Phone: [facility] CenterStra[facility].; [facility]. Comment on above: Method: Oral 11-25-2023 13:35-0400 Body weight 81.19 kg NIRMAL MARCOS MD Work Phone: [facility]Stra[facility].; [facility]. 11-25-2023 13:35-0400 Diastolic blood pressure 60 mm[Hg] NIRMAL MARCOS MD Work Phone: [facility]Stra[facility].; [facility] [employer] [facility] [employer]. Comment on above: Patient Position: Sitting; Cuff Location : Left Arm; Cuff Size: Standard 11-25-2023 13:35-0400 Heart rate 60 /min NIRMAL MARCOS MD Work Phone: [facility] CenterBB[facility] [employer]; [facility] MAN[facility]ATTANFanvibe [facility] [employer] [facility] HealthcareStra[employer]. Comment on above: Pattern: Regular 11-25-2023 13:35-0400 Systolic blood pressure 97 mm[Hg] NIRMAL MARCOS MD Work Phone: [facility] CenterBB[employer]; [facility]Stra[facility]. Comment on above: Patient Position: Sitting; Cuff Location : Left Arm; Cuff Size: Standard 10-16-2023 08:56-0400 Body height 175.9 cm Kalyani Rosales RN [facility], [facility].; [facility], Inc[employer] 10-16-2023 08:56-0400 Body mass index (BMI) [Ratio] 27.01 kg/m2 Kalyani Rosales RN [facility], [facility].; [facility], [facility]. 10-16-2023 08:56-0400 Body surface area Derived from formula 2 m2 Kalyani Rosales RN [facility], [facility].; [facility], [facility]. 10-16-2023 08:56-0400 Body temperature 97.9 [degF] Kalyani Rosales RN [facility] CenterStra[facility].; [employer] [facility] [employer] [facility], [facility]. Comment on above: Method: Oral 10-16-2023 08:56-0400 Body weight 83.58 kg Kalyani Rosales RN [facility], [facility].; [employer] [facility] [employer] [facility], [employer] 10-16-2023 08:56-0400 Diastolic blood pressure 68 mm[Hg] Kalyani Rosales RN [facility], Inc.; [employer] [facility] [employer] [facility], [facility]. Comment on above: Patient Position: Sitting; Cuff Location : Left Arm; Cuff Size: Standard 10-16-2023 08:56-0400 Heart rate 69 /min Kalyani Rosales RN [facility], [facility].; [employer] [facility] [employer] [facility], [facility]. Comment on above: Pattern: Regular 10-16-2023 08:56-0400 Inhaled oxygen concentration 21 % Kalyani Rosales RN [facility], Inc.; [employer] [facility] [employer] [facility], [employer] Comment on above: Room air 10-16-2023 08:56-0400 SaO2% (BldA) [Mass fraction] 97 % Kalyani Rosales RN [facility], Inc.; [facility], [facility]. 10-16-2023 08:56-0400 Systolic blood pressure 103 mm[Hg] Kalyani Rosales RN [facility].; [facility], [facility]. Comment on above: Patient Position: Sitting; Cuff Location : Left Arm; Cuff Size: Standard 05-29-2022 14:14-0500 Diastolic blood pressure 72 mm[Hg] NIRMAL MARCOS MD Work Phone: [facility].; [facility], [facility]. Comment on above: Patient Position: Sitting; Cuff Location : Left Arm; Cuff Size: Large 05-29-2022 14:14-0500 Heart rate 98 /min NIRMAL MARCOS MD Work Phone: [facility].; [facility], [facility]. Comment on above: Pattern: Regular 05-29-2022 14:14-0500 Systolic blood pressure 110 mm[Hg] NIRMAL MARCOS MD Work Phone: [facility].; [facility] HospitalStra[facility]. Comment on above: Patient Position: Sitting; Cuff Location : Left Arm; Cuff Size: Large 07-15-2021 14:37-0500 Body height 175.9 cm Angelica Hutson RN [facility].; [facility], [facility]. 07-15-2021 14:37-0500 Body mass index (BMI) [Ratio] 28 kg/m2 Angelica Hutson RN [facility].; [facility], [facility]. 07-15-2021 14:37-0500 Body surface area Derived from formula 2.03 m2 Angelica Hutson RN [facility].; [facility], [facility]. 07-15-2021 14:37-0500 Body temperature 98.1 [degF] Angelica Hutson RN [facility].; [facility], [facility]. Comment on above: Method: Oral 07-15-2021 14:37-0500 Body weight 86.64 kg Angelica Hutson RN [facility] [employer] [facility] [employer].; [employer] [facility] [employer] [facility], Inc[employer] 07-15-2021 14:37-0500 Diastolic blood pressure 87 mm[Hg] Angelica Hutson RN [facility] [employer] [facility] [employer]Stra[employer].; [employer] [facility] [employer] [employer] [facility], Inc[employer] Comment on above: Patient Position: Sitting; Cuff Location : Left Arm; Cuff Size: Large 07-15-2021 14:37-0500 Heart rate 67 /min Angelica Hutson RN [facility] Nancy [employer] [facility], [facility].; [employer] [facility] [place] [employer] [facility], Inc[employer] Comment on above: Pattern: Regular 07-15-2021 14:37-0500 Systolic blood pressure 149 mm[Hg] Angelica Hutson RN [facility] [employer] [facility] [employer]Stra[employer].; [employer] [facility] [employer] [facility], Inc[employer] Comment on above: Patient Position: Sitting; Cuff Location : Left Arm; Cuff Size: Large 06-25-2017 14:06-0500 Body height 175.9 cm Angelica Hutson RN [facility] [employer] [facility], Inc.; [facility] [employer] [facility], [employer] 06-25-2017 14:06-0500 Body mass index (BMI) [Ratio] 27.8 kg/m2 Angelica Hutson RN [facility] [employer] [facility], [facility].; [employer] [facility] [employer] [facility], Inc[employer] 06-25-2017 14:06-0500 Body surface area Derived from formula 2.02 m2 Angelica Hutson RN [facility] [employer] [facility], [facility].; [facility] [employer] [facility], Inc[employer] 06-25-2017 14:06-0500 Body temperature 98 [degF] Angelica Hutson RN [facility] [employer] [facility].; [employer] [facility] [employer] Comment on above: Method: Oral 06-25-2017 14:06-0500 Body weight 86 kg Angelica Hutson RN [facility] [employer] [facility].; [employer] [facility] [facility], Inc[employer] 06-25-2017 14:06-0500 Diastolic blood pressure 79 mm[Hg] Angelica Hutson RN [facility] [employer] [facility].; [employer] [facility] [employer], [employer] Comment on above: Patient Position: Sitting; Cuff Location : Left Arm; Cuff Size: Large 06-25-2017 14:06-0500 Heart rate 76 /min Angelica Hutson RN [employer] [facility] [employer] [facility].; [facility] [employer] [facility], [facility]. Comment on above: Pattern: Regular 06-25-2017 14:06-0500 Inhaled oxygen concentration 21 % Angelica Hutson RN [facility] [employer] [facility]At[facility] [employer].; [employer] [facility] [employer] [facility], Inc[employer] Comment on above: Room air 06-25-2017 14:06-0500 SaO2% (BldA) [Mass fraction] 95 % Angelica Hutson RN [facility] [employer].; [employer] [facility] [employer] [facility], Inc[employer] 06-25-2017 14:06-0500 Systolic blood pressure 115 mm[Hg] Angelica Hutson RN [facility] [employer] [employer].; [employer] [facility] [employer] [facility], [facility]. Comment on above: Patient Position: Sitting; Cuff Location : Left Arm; Cuff Size: Large 10-01-2013 09:13-0400 Body height 177.8 cm NIRMAL MARCOS MD Work Phone: [facility] [employer] [facility] [employer].; [employer] [facility] [employer] [facility], [employer] 10-01-2013 09:13-0400 Body mass index (BMI) [Ratio] 27.26 kg/m2 NIRMAL MARCOS MD Work Phone: [facility] [employer] [facility] [employer].; [facility] [employer] [facility], [employer] 10-01-2013 09:13-0400 Body surface area Derived from formula 2.04 m2 NIRMAL MARCOS MD Work Phone: [facility] [employer] [facility] [employer].; [employer] [facility] [employer] [facility] HealthcareAt[facility] Inc. 10-01-2013 09:13-0400 Body temperature 97.8 [degF] NIRMAL MARCOS MD Work Phone: [facility] [employer] [employer].; [employer] [facility] [employer] [facility], [facility]. Comment on above: Method: Oral 10-01-2013 09:13-0400 Body weight 86.18 kg NIRMAL MARCOS MD Work Phone: [employer] [employer]. 10-01-2013 09:13-0400 Diastolic blood pressure 79 mm[Hg] NIRMAL MARCOS MD Work Phone: [facility] [employer].; [employer] [facility] [employer] [employer]. Comment on above: Patient Position: Sitting; Cuff Location : Left Arm; Cuff Size: Standard 10-01-2013 09:13-0400 Heart rate 67 /min NIRMAL MARCOS MD Work Phone: [facility]Stra[employer].; [employer] [facility] [employer]. Comment on above: Pattern: Regular 10-01-2013 09:13-0400 Systolic blood pressure 123 mm[Hg] NIRMAL MARCOS MD Work Phone: [facility] HospitalMar[facility].; [employer] [facility] [employer]. Comment on above: Patient Position: Sitting; Cuff Location : Left Arm; Cuff Size: Standard 09-28-2013 14:56-0400 Body height 177.8 cm [facility] [employer] [facility] [employer].; [employer] [facility] [employer]. 09-28-2013 14:56-0400 Body mass index (BMI) [Ratio] 27.12 kg/m2 MERARI [facility] [employer].; [employer] [facility] [employer]. 09-28-2013 14:56-0400 Body surface area Derived from formula 2.04 m2 MERARI [facility] [employer] [facility] [employer].; [employer] [facility] [employer] [facility] HealthcareAt[facility]. 09-28-2013 14:56-0400 Body temperature 98.4 [degF] MERARI [facility] [employer].; [employer] [facility] [employer]. Comment on above: Method: Oral 09-28-2013 14:56-0400 Body weight 85.73 kg MERARI [facility] [employer].; [employer] [facility] [employer]. 09-28-2013 14:56-0400 Diastolic blood pressure 79 mm[Hg] MERARI [facility] [employer] [facility].; [employer] [facility] HospitalLost My [facility]. Comment on above: Patient Position: Sitting; Cuff Location : Left Arm; Cuff Size: Standard 09-28-2013 14:56-0400 Heart rate 69 /min MER[facility]I [facility].; [employer] [facility] [employer] [facility] [employer]. Comment on above: Pattern: Regular 09-28-2013 14:56-0400 Systolic blood pressure 118 mm[Hg] [facility] [employer] [facility] HealthcareAt[facility] Inc.; [employer] [facility]Stra[facility]. Comment on above: Patient Position: Sitting; Cuff Location : Left Arm; Cuff Size: Standard 10-19-2012 13:13-0400 Body height 177.8 cm NIRMAL MARCOS MD Work Phone: [facility] [employer] [employer].; [employer] [facility] CenterStra[facility]. 10-19-2012 13:13-0400 Body mass index (BMI) [Ratio] 27.55 kg/m2 NIRMAL MARCOS MD Work Phone: [facility] [employer].; [facility] [employer]. 10-19-2012 13:13-0400 Body surface area Derived from formula 2.05 m2 NIRMAL MARCOS MD Work Phone: [facility] [employer].; [facility] [employer]. 10-19-2012 13:13-0400 Body temperature 98 [degF] NIRMAL MARCOS MD Work Phone: [facility] [employer].; [facility] [employer]. Comment on above: Method: Oral 10-19-2012 13:130400 Body weight 87.09 kg NIRMAL MARCOS MD Work Phone: [facility] [employer].; [facility] [employer]. 10-19-2012 13:13-0400 Diastolic blood pressure 75 mm[Hg] NIRMAL MARCOS MD Work Phone: [facility] [employer].; [employer] [facility] [employer]. Comment on above: Patient Position: Sitting; Cuff Location : Left Arm; Cuff Size: Large 10-19-2012 13:130400 Heart rate 75 /min NIRMAL MARCOS MD Work Phone: [facility].; [facility] [employer]. Comment on above: Pattern: Regular 10-19-2012 13:13-0400 Systolic blood pressure 111 mm[Hg] NIRMAL MARCOS MD Work Phone: [facility].; [facility] [employer]. Comment on above: Patient Position: Sitting; Cuff Location : Left Arm; Cuff Size: Large 01-26-2012 15:55-0400 Body height 177.8 cm Angelica Hutson RN [facility].; [facility] 01-26-2012 15:55-0400 Body mass index (BMI) [Ratio] 26.83 kg/m2 Angelica Hutson RN [facility], [facility].; [facility], [facility]. 01-26-2012 15:55-0400 Body surface area Derived from formula 2.03 m2 Angelica Hutson RN [facility].; [facility] 01-26-2012 15:55-0400 Body weight 84.82 kg Angelica Hutson RN [facility].; [facility] 01-26-2012 15:55-0400 Diastolic blood pressure 70 mm[Hg] Angelica Hutson RN [facility].; [facility] [employer], [facility]. Comment on above: Patient Position: Sitting; Cuff Location : Left Arm; Cuff Size: Large 01-26-2012 15:55-0400 Heart rate 76 /min Angelica Hutson RN [facility] [employer].; [facility] [employer], [facility]. Comment on above: Pattern: Regular 01-26-2012 15:55-0400 Systolic blood pressure 105 mm[Hg] Angelica Hutson RN [facility] [employer].; [facility] [employer], [facility]. Comment on above: Patient Position: Sitting; Cuff Location : Left Arm; Cuff Size: Large 01-05-2012 15:49-0400 Body height 177.8 cm NIRMAL MARCOS MD Work Phone: [facility] [employer]; [facility]. 01-05-2012 15:49-0400 Body mass index (BMI) [Ratio] 27.41 kg/m2 NIRMAL MARCOS MD Work Phone: [facility] [employer].; [facility]. 01-05-2012 15:49-0400 Body surface area Derived from formula 2.05 m2 NIRMAL MARCOS MD Work Phone: [facility] [employer]; [facility]. 01-05-2012 15:49-0400 Body temperature 98.4 [degF] NIRMAL MARCOS MD Work Phone: [facility] [employer]; [facility] [employer]. Comment on above: Method: Oral 01-05-2012 15:49-0400 Body weight 86.64 kg NIRMAL MARCOS MD Work Phone: [facility] [employer]; [facility] [employer]. 01-05-2012 15:49-0400 Diastolic blood pressure 87 mm[Hg] NIRMAL MARCOS MD Work Phone: [facility] [employer]; [facility] [employer]. Comment on above: Patient Position: Sitting; Cuff Location : Left Arm; Cuff Size: Standard 01-05-2012 15:49-0400 Heart rate 80 /min NIRMAL MARCOS MD Work Phone: [facility] [employer]; [facility] [employer]. Comment on above: Pattern: Regular 01-05-2012 15:49-0400 Systolic blood pressure 125 mm[Hg] NIRMAL MARCOS MD Work Phone: [facility] [employer]; [facility] [employer]. Comment on above: Patient Position: Sitting; Cuff Location : Left Arm; Cuff Size: Standard 09-02-2010 13:58-0400 Body height 177.8 cm Angelica Hutson RN [facility] [employer].; [facility] [employer] 09-02-2010 13:58-0400 Body mass index (BMI) [Ratio] 27.26 kg/m2 Angelica Hutson RN [facility] [employer].; [facility] [employer], [employer] 09-02-2010 13:58-0400 Body surface area Derived from formula 2.04 m2 Angelica Hutson RN [facility] [employer].; [facility] [employer], [employer] 09-02-2010 13:58-0400 Body temperature 98 [degF] Angelica Hutson RN [facility] [employer].; [facility] [facility] [employer] Comment on above: Method: Oral 09-02-2010 13:58-0400 Body weight 86.18 kg Angelica Hutson RN [facility] [employer].; [facility] [employer] 09-02-2010 13:58-0400 Diastolic blood pressure 79 mm[Hg] Angelica Hutson RN [facility] [employer].; [facility] [employer] Comment on above: Patient Position: Sitting; Cuff Location : Left Arm; Cuff Size: Large 09-02-2010 13:58-0400 Heart rate 81 /min Angelica Hutson RN [facility] [employer].; [facility] [employer] Comment on above: Pattern: Regular 09-02-2010 13:58-0400 Systolic blood pressure 122 mm[Hg] Angelica Hutson RN [facility] [employer].; [facility] [employer]. Comment on above: Patient Position: Sitting; Cuff Location : Left Arm; Cuff Size: Large Encounters Encounter Date Encounter Type Care Provider Facility Start: 05-05-2025 ambulatory [facility] Facility: [facility] Start: 04-23-2025 End: 04-23-2025 Admission to same day surgery center Antonia ELLNIGTON MD Work Phone: [facility] [employer], [facility]. Start: 04-21-2025 End: 04-21-2025 ambulatory Antonia ELLINGTON [facility] Start: 04-21-2025 End: 04-21-2025 Historical Summary Antonia ELLINGTON MD Work Phone: [facility] [employer] Start: 04-21-2025 Review Antonia ELLINGTON MD Work Phone: [facility] [employer]. Start: 03-23-2025 End: 03-23-2025 Historical Summary NIRMAL MARCOS MD Work Phone: [facility] [employer]. Start: 07-23-2024 End: 07-23-2024 Historical Summary NIRMAL MARCOS MD Work Phone: [facility] [employer] Start: 02-09-2024 End: 02-09-2024 Historical Summary NIRMAL MARCOS MD Work Phone: [facility] [employer]. Start: 02-09-2024 End: 02-09-2024 Results Review NIRMAL MARCOS MD Work Phone: [facility] [employer]. Start: 02-04-2024 End: 02-04-2024 Results Review NIRMAL MARCOS MD Work Phone: [facility] [employer]. Start: 02-02-2024 End: 02-02-2024 Office outpatient visit 15 minutes NIRMAL MARCOS [facility] [employer]. Start: 11-25-2023 End: 11-25-2023 Office outpatient visit 15 minutes NIRMAL MARCOS MD Work Phone: [facility] [employer]. Start: 10-16-2023 End: 10-16-2023 Office outpatient visit 15 minutes NIRMAL MARCOS MD Work Phone: [facility] [employer]. Start: 10-16-2023 Review NIRMAL Hills Work Phone: [facility] [employer] Start: 05-29-2022 End: 05-29-2022 Office outpatient visit 15 minutes NIRMAL MARCOS MD Work Phone: [facility] [employer] Start: 07-15-2021 End: 07-15-2021 Office outpatient visit 15 minutes NIRMAL MARCOS MD Work Phone: [facility] [employer]. Start: 06-25-2017 End: 06-25-2017 Office outpatient visit 15 minutes NIRMAL MARCOS MD Work Phone: [facility] [employer] Start: 10-01-2013 End: 10-01-2013 Patient encounter procedure NIRMAL MARCOS MD Work Phone: [facility] [employer] Start: 09-28-2013 End: 09-28-2013 Medication Refill/Order NIRMAL MARCOS MD Work Phone: [facility] [employer] Start: 09-28-2013 End: 09-28-2013 Patient encounter procedure NIRMAL MARCOS MD Work Phone: [facility] [employer] Start: 10-19-2012 End: 10-19-2012 Patient encounter procedure NIRMAL MARCOS MD Work Phone: [facility] [employer] Start: 01-26-2012 End: 01-26-2012 Patient encounter procedure NIRMAL MARCOS MD Work Phone: [facility] [employer] Start: 01-05-2012 End: 01-05-2012 Patient encounter procedure NIRAML MARCOS MD Work Phone: [facility] [employer]. Start: 09-03-2010 End: 09-03-2010 Results Review NIRMAL MARCOS MD Work Phone: [facility] [employer] Start: 09-02-2010 End: 09-02-2010 Patient encounter procedure NIRMAL MARCOS MD Work Phone: [facility] Procedures Date Procedure Procedure Detail Performing Clinician Start: 04-21-2025 End: 04-21-2025 TDAP - Adacel/Boostrix Angelica dean RN Comment on above: Had immunization. Start: 02-02-2024 End: 02-02-2024 Dischrg meds reconciled w/current med list Antonia ELLINGTON MD Work Phone: Start: 11-25-2023 End: 11-25-2023 Dischrg meds reconciled w/current med list ROSALINA HASTINGS [employer] Work Phone: Start: 11-22-2023 Urinalysis NIRMAL PRICE MD Work Phone: Start: 10-16-2023 End: 10-16-2023 Dischrg meds reconciled w/current med list ROSALINA HASTINGS [employer] Work Phone: Start: 05-29-2022 End: 05-29-2022 Dischrg meds reconciled w/current med list NIRMAL MARCOS MD Work Phone: Start: 05-08-2014 End: 05-08-2014 TDAP - Adacel/Boostrix Kalyani Rosales RN Comment on above: Had immunization. 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 Start: 04-21-2025 Hemoglobin glycosylated a1c HGB A1C (03338) Start: 21-Apr-2025 13:54-05:00 Request [employer]ubka; [employer]. Start: 04-21-2025 Assay of ferritin FERRITIN (12027) Start: 21-Apr-2025 13:49-05:00 Request [employer]ubka; [employer]. Start: 04-21-2025 Blood count complete auto&auto difrntl wbc CBC, PLATELETS & AUT DIFF (07540) Start: 21-Apr-2025 13:49-05:00 Request Zubka; [employer]. Start: 04-21-2025 Admission to same day surgery center Medical; PRE OPERATIVE PHYSICAL - toe surgery (left foot) - [place] [facility] - Surg 05/05 [place] [facility]. Start: 21-Apr-2025 13:15-05:00 MD Antonia ELLINGTON Appointment Request [employer] Start: 02-02-2024 Hfe hemochromatosis gene anal common variants HFE GENE (78256) Start: 02-Feb-2024 16:11-04:00 Request Zubka; [employer]. Start: 02-02-2024 Assay of ferritin FERRITIN (01742) Start: 02-Feb-2024 16:11-04:00 Request Zubka; [employer]. Start: 02-02-2024 Assay of iron IRON (07171) Start: 02-Feb-2024 16:11-04:00 Request [employer]ubka; [employer]. Start: 02-02-2024 Comprehensive metabolic panel CMP - COMPREHENSIVE METABOLIC PANEL (77774) Start: 02-Feb-2024 16:11-04:00 Request [employer]ubka; [employer]. Start: 02-02-2024 Blood count complete auto&auto difrntl wbc CBC, PLATELETS & AUT DIFF (13147) Start: 02-Feb-2024 16:11-04:00 Request [employer]ubka; [employer]. Start: 02-02-2024 Medical; ACUTE ILLNESS - blood disorder in family and wants checked out Medical; ACUTE ILLNESS - blood disorder in family and wants checked out [employer]. Start: 02-Feb-2024 16:10-04:00 MD Antonia ELLINGTON Appointment Request [facility] [employer] Start: 11-25-2023 Follow-up encounter Medical; HOSPITAL ER FOLLOW UP - disc. 11/22-records [facility] from [facility] [employer] Start: 25-Nov-2023 13:30-04:00 SONNY HASTINGS Appointment Request [facility] Start: 09-28-2013 Patient Education [employer]; [employer]. Start: 10-19-2012 Patient Education Sinus Headache: sinuses Indication: Acute sinusitis (Renamed from Acute infection of nasal sinus) Start: 19-Oct-2012 Instruction Type: Patient Education [employer]. Start: 01-26-2012 Tympanometry TYMPANOMETRY (70512) Start: 26-Jan-2012 Intent [employer]. Start: 09-02-2010 Sedimentation rate rbc non-automated SED RATE ERYTHROCYTE (46810) Start: 02-Sep-2010 14:48-04:00 Request [employer] Immunizations Immunization Date Immunization Notes Care Provider Fa [facility] 04-21-2025 *IMMUNIZATION ADMIN ([id number]) Antonia ELLINGTON MD Work Phone: [facility]; [facility] 04-21-2025 tetanus toxoid, redu myrna diphtheria toxoid, and acellular pertussis vaccine, adsorbed Antonia ELLINGTON MD Work Phone: [facility] [employer]; [facility] Comment on above: Site: Right Nico enriquez: * Tdap (Tetanus, Diphtheria, Pertussis) Vaccine (01/18/21) * Tdap (Tetanus, Diphtheria, Pertussis) Vaccine (01/18/21) 06-25-2017 pneumococcal conjuga te vaccine, 13 valent NIRMAL MARCOS MD Work Phone: [facility]; [facility] Comment on above: Negative. 05-08-2014 tetanus toxoid, redu myrna diphtheria toxoid, and acellular pertussis vaccine, adsorbed NIRMAL MARCOS MD Work Phone: [facility] [employer]; [facility]. Comment on above: at [place] influenza virus vaccine, unspecified formulation NIRMAL MARCOS MD Work Phone: [facility] [employer]; [facility] Comment on above: Refused. influenza virus vaccine, unspecified formulation NIRMAL MARCOS MD Work Phone: [facility] [employer]; [facility] Comment on above: Refused. influenza virus vaccine, unspecified formulation Antonia ELLINGTON MD Work Phone: [facility] [employer]; [facility] Comment on above: Refused. 04-21-25 Payers Date Payer Category Payer Self-pay 2025 Private Health Insurance [id number] 1955 Unknown [id number] Medicare [id number] Unknown Unknown [id number] Social History Date Type Detail Facility Alcohol Use: Alcohol Use: ; N o Alcohol Use. [facility] [employer]; [facility] Current Work/Study Status Current Work/St udy Status [facility]; [facility] Tobacco use: Tobacco use: ; C urrent some day smoker. [facility].; [facility] Male [facility].; [facility] Work Phone: Occasional tobacco smoker [facility]; [facility] Work Phone: Marital status: Marital status: ; . [facility]; [facility] Tobacco use: Tobacco use: ; F ormer smoker. [facility] [employer]; [facility] [employer] Ex-smoker [facility]; [facility] [employer] Work Phone: Family History No Family History Records Found Brother (s) Status:Active Comments:2. Daughter (s) Status:Active Comments:2. Father Status:Active Comments:d. 96; CHF Mother Status:Active Comments:d. 86; CVA Sister (s) Status:Active Comments:2. Son (s) Status:Active Comments:2. hemo chromatosis (both) Brother (s) Status:Active Comments:2. Daughter (s) Status:Active Comments:2. Father Status:Active Comments:d. 96; CHF Mother Status:Active Comments:d. 86; CVA Sister (s) Status:Active Comments:2. Son (s) Status:Active Comments:2. hemo chromatosis (both) Brother (s) Status:Active Comments:2. Daughter (s) Status:Active Comments:2. Father Status:Active Comments:d. 96; CHF Mother Status:Active Comments:d. 86; CVA Sister (s) Status:Active Comments:2. Son (s) Status:Active Comments:2. hemo chromatosis (both) Brother (s) Status:Active Comments:2. Daughter (s) Status:Active Comments:2. Father Status:Active Comments:d. 96; CHF Mother Status:Active Comments:d. 86; CVA Sister (s) Status:Active Comments:2. Son (s) Status:Active Comments:2. hemo chromatosis (both) Brother (s) Status:Active Comments:2. Daughter (s) Status:Active Comments:2. Father Status:Active Comments:d. 96; CHF Mother Status:Active Comments:d. 86; CVA Sister (s) Status:Active Comments:2. Son (s) Status:Active Comments:2. hemo chromatosis (both) Summary Purpose Advance Directives No Advanced Directives Records FoundNo Advanced Directives Records FoundNo Advanced Directives Records Found Additional Source Comments (unrecognized sect ion and content) No Status Records FoundNo Status Records FoundNo Status Records Found INFORMATION SOURCE (unrecogn ized section and content) DATE CREATED AUTHOR 04/23/[address] [facility] DATE CREATED AUTHOR AUTHOR'S ORGANIZ ATION 04/23/2025 [facility] DATE CREATED AUTHOR AUTHOR'S ORGANIZ ATION 04/26/2025 [facility] FOR RECORDS PERTAINING TO PATIENTS WHO ARE OR HAVE BEEN ENROLLED IN A CHEMICAL DEPENDENCY/SUBSTANCEABUSE PROGRAM, SOME INFORMATION MAY BE OMITTED. This clinical summary was aggregated from multiple sources. Caution should be exercised in using it in the provision of clinical care. This summary normalizes information from multiple sources, and as a consequence, information in this document may materially change the coding, format and clinical context of patient data. In addition, data may be omitted in some cases. CLINICAL DECISIONS SHOULD BE BASED ON THE PRIMARY CLINICAL RECORDS. [employer] provides no warranty or guarantee of the accuracy or completeness of information in this document.
--- NOTE | 2025-05-05 08:03 | PRE.ANES_ITS ---
ASA Classification* ASA Classification ASA Classification: 2 Assessment & Plan Anesthesia* Anesthesia Assessment Anesthesia Assessment: Discussed sedation and/or anesthesia options, risks, benefits, and alternatives with patient/parents/legal guardian/POA. Questions invited. The patient/parents/legal guardian/POA seems to understand and agrees to proceed with anesthesia plan. Reviewed the physical assessment, medical history, allergy history and patient home medications list prior to surgery/procedure/anesthetic and documented any changes. Performed airway and anesthesia risk assessments. Anesthesia Type Anesthesia Type: General and Block Anesthesia Focused Assessment* Airway Assessment Mouth opens: >3 cm Mallampati Score: II Labs Anesthesia Preop lab: CBC CHEMISTRY Magnesium, (1.5-2.2) 2.2 mg/dL 05/04/25, 13:50 COAG Pre-Assessment Diagnosis/Proposed Procedure Planned Operative Procedure(s): ERAS, ARTHRODESIS OF THE FIRST METATARSAL PHALANGEAL JOINT AND BONE GRAFT HARVEST LEFT Anesthesia History Anesthesia History - detective private eye: Anesthesia History - detective private eye Hx Hospitalization No 05/02/25 11:45 Any Problems With Anesthesia No 05/02/25 11:45 Cholinesterase deficiency No 05/02/25 11:45 You/Your Family Experience No 05/02/25 11:45 fever (hyperthermia) with Relationship Recent Exposure to Contagious Disease Does patient have nerve No 05/02/25 11:45 stimulator Patient instructed to have device shut off --Does patient have Pacemaker or ICD? When Was Last Pacemaker Check QUESTION #4 FULL TEXT: You/Your Family Experience fever (hyperthermia) with Anesthesia Last Oral Intake Last Oral intake: Last Oral Intake NPO since Meds taken in AM with sips of water? Meds patient instructed to take am of surgery PONV PONV - detective private eye: PONV - detective private eye Female Yes 05/02/25 11:45 HX of Motion Sickness No 05/02/25 11:45 HX of N/V After Surgery No 05/02/25 11:45 Non-Smoker No 05/02/25 11:45 Duration of Surgery greater Yes 05/02/25 11:45 than 60 minutes Number of Risk Factors 2 05/02/25 11:45 PONV Score Moderate Risk 05/02/25 11:45 Respiratory Assessment Respiratory Assessment - detective private eye: Respiratory Tract Infection Hx - detective private eye Hx Respiratory Tract Infection No 05/02/25 11:45 STOP Sleep Apnea STOP Sleep Apnea - detective private eye: STOP Sleep Apnea - detective private eye Hx Hypertension No 05/02/25 11:45 Hx Sleep Apnea No 05/02/25 11:45 CPAP BIPAP Do you snore loudly (louder Yes 05/02/25 11:45 than talking or can be heard Do you often feel tired/ No 05/02/25 11:45 fatigued/ sleepy during daytime? Has anyone observed you stop No 05/02/25 11:45 breathing during sleep? STOP Results Negative 05/02/25 11:45 QUESTION #5 FULL TEXT : Do you snore loudly (louder than talking or can be heard through closed doors)? 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 Specify any problems Hx of Preganancy in last 3 N/A 05/02/25 11:45 Months Nurse Filling Out Transfusion [id number] 05/02/25 11:45 & Questions: Date: 05/02/25 05/02/25 11:45 Time: 11:52 05/02/25 11:45 Patient unable to answer at this time (ie. confused, unrespo /Reproduction History /Reproductive History - detective private eye: /Reproductive Hx- detective private eye Hx Now Gestational Age (in weeks): EDC: Hx Hx Para Hx Section SAB Does the father of the baby or his family experience fever w Father of the baby Malignant Hypertension history comment Active Medications Active Medications: Current Medications Generic Name Dose Route Start Last Admin Trade Name Freq PRN Reason Stop Dose Admin Acetaminophen 1,000 mg 05/05/25 10:00 Acetaminophen 500 Mg Tablet PO 05/05/25 10:01 PREOP ONE Gabapentin 600 mg 05/05/25 10:00 Gabapentin 600 Mg Tablet PO 05/05/25 10:01 PREOP ONE Cefazolin Sodium 2 gm/ Sodium 110 mls @ 150 mls/hr 05/05/25 10:00 Chloride IV 05/05/25 10:43 INTRAOP ONE Magnesium Sulfate 1 gm/ 102 mls @ 408 mls/hr 05/05/25 10:00 Dextrose IV 05/05/25 10:14 PREOP ONE Lactated Ringer's 1,000 mls @ 15 mls/hr 05/05/25 08:00 IV .Q48H WEI Insulin Human Lispro 1 - 6 unit 05/05/25 10:00 Insulin Lispro 100 Unit/Ml Insuln.Pen SC Q4H PRN PRN BG>/= 180, SEE PROTOCOL Protocol PFSH Medical History Wears glasses Ambulates with cane BPH (benign prostatic hyperplasia) Smoker Leg cramps History of echocardiogram Hemochromatosis Home Medications ?Medication ?Instructions ?Recorded ?Last Taken ?Type lactobacillus combination no.4 3 3,000 mmu cells PO DA DL 05/02/25 Unknown History billion cell capsule (Probiotic) multivitamin 1 tab PO DAILY 05/02/25 Unkn own History tamsulosin 0.4 mg capsule 0.4 mg PO QHS 05/02/25 Unkno wn History turmeric 400 mg capsule 400 mg PO DAILY 05/02/25 Unk nown History Allergy/AdvReac Type Severity Reaction Status Date / Time No Known Allergies Allergy Verified 05/02/25 11:43 Surgical History History of ankle surgery Social History Smoking Status: Never smoker Review of Systems (Anesthesia) ROS Narrative System reviewed and no additional complaints, except as documented.
[2025-05-05] MEDS: Lactated Ringers 1,000 ML 15 ML IV (08:18)
[2025-05-05] MEDS: Magnesium 1 GM over 15 mins IV (08:19)
--- NOTE | 2025-05-05 09:00 | RAD_ITS ---
PROCEDURE: FOOT 2 VIEWS; O.R. FLUORO FOR C-ARM 05/05/2025 REASON FOR EXAM: ARTHRODESIS FIRST METATARSAL PHALANGEAL JOINT, HARVEST BONE GRAFT TECHNIQUE: Procedure Code: RADFO2; RADORFL_C_ARM Modality: DX Procedure: FOOT 2 VIEWS; O.R. FLUORO FOR C-ARM Laterality: Left FINDINGS: Total reported fluoroscopy time: 107.3 seconds Total exposure: 2.08 mGy Fluoroscopic spot images demonstrate an arthrodesis of the 1st MTP joint via a dorsal plate and small simple screws. Degenerative changes are noted at the 1st MTP joint including marginal osteophytosis. Questionable previous bunionectomy of the head of the 1st metatarsal. An old healed fracture of the distal shaft of the 3rd metatarsal is noted. RAD/Foot 2 Views IMPRESSION: As above. Reading Location: [id number]
--- NOTE | 2025-05-05 09:00 | RAD_ITS ---
PROCEDURE: FOOT 2 VIEWS; O.R. FLUORO FOR C-ARM 05/05/2025 REASON FOR EXAM: ARTHRODESIS FIRST METATARSAL PHALANGEAL JOINT, HARVEST BONE GRAFT TECHNIQUE: Procedure Code: RADFO2; RADORFL_C_ARM Modality: DX Procedure: FOOT 2 VIEWS; O.R. FLUORO FOR C-ARM Laterality: Left FINDINGS: Total reported fluoroscopy time: 107.3 seconds Total exposure: 2.08 mGy Fluoroscopic spot images demonstrate an arthrodesis of the 1st MTP joint via a dorsal plate and small simple screws. Degenerative changes are noted at the 1st MTP joint including marginal osteophytosis. Questionable previous bunionectomy of the head of the 1st metatarsal. An old healed fracture of the distal shaft of the 3rd metatarsal is noted. RAD/O.R. Fluoro for C-Arm IMPRESSION: As above. Reading Location: [id number]
[2025-05-05] MEDS: Midazolam 2 MG/2 ML Syringe IV (09:12)
--- NOTE | 2025-05-05 10:00 | FOOT_PTH ---
PATIENT: JOE MAGDALENO [place] [facility] [place][id number] AGE/SX: 70/M ROOM: RE05/05/[address]: Dr. Valentin Mcleod DPM : 1955 BED: DIS: 05/05/2025 SPEC #: [id number] RECD: 05/05/25 12:50 STATUS: JOSUE REMehnaz #: [id number] MARA: 05/05/25 10:[address]: Valentin Mcleod DEPT: SURGICAL PATHOLOGY RECD BY: Mike Becerril ENTERED: 05/05/25 14:49 SP TYPE: FOOT OTHR DR: Eloisa Rosales MD Tissues: A - Foot, NOS Procedures: Decalcification bone/plaque Surgery Specimen Level V HEADER OPERATION: ERAS, arthrodesis of first metatarsal phalangeal joint PRE-OP DIAGNOSIS: Left foot arthritis TISSUE SUBMITTED: A- Left foot - gout MICROSCOPIC DIAGNOSIS A. Soft tissue, left foot, excision: * Benign fibrosynovial tissue with chronic inflammation and giant cells with polarizable foreign material compatible with previous injection site contents COMMENT The features of gout are not identified MICROSCOPIC DESCRIPTION Slides are reviewed. GROSS DESCRIPTION A. Received in formalin labeled with the patient's name and date of . Designated as gout left foot is a suazo-white, focally fragmented portion of soft tissue, collectively measuring 2.0 x 1.4 x 0.6 cm. There are chalky white to yellow deposits throughout the tissue. Entirely submitted in 1 cassette. Note: The specimen is labeled as gout left foot but was received in a formalin filled specimen container. (CA). CA 05/05/2025PT:[id number]
--- NOTE | 2025-05-05 10:26 | PCM.OPRPT ---
Operative Report (Standard) Operative Information Date of Procedure: 05/05/25 Pre-Operative Diagnosis: 1. Pain, left foot 2. Hallux valgus, left foot 3. Hallux rigidus, left foot 4. Primary osteoarthritis, left foot 5. Hammertoe, left foot Post-Operative Diagnosis: Same as preoperative diagnosis Surgery/Procedure Performed: Procedure #1: Bone marrow aspirate concentrate harvest, left lower extremity Procedure #2: [place] of calcaneal bone graft, left lower extremity Procedure #3: First metatarsophalangeal joint arthrodesis, left lower extremity Procedure #4: Percutaneous flexor tenotomy and capsulotomy second digit and second metatarsal phalangeal joint, left lower extremity Procedure #5: Percutaneous flexor tenotomy and capsulotomy third digit and third metatarsophalangeal joint, left lower extremity Procedure #6: Percutaneous flexor tenotomy and capsulotomy of fourth digit and and fourth metatarsophalangeal joint, left lower extremity Procedure #7: Derotational arthroplasty, fifth digit, left lower extremity Procedure #8: Application of posterior splint, left lower extremity human resource professional: Yes Wire Preparation Worker: Freeman Pitts PGY2 Tasks completed by care management assistant: Opening & closing, Removing tissue and Implanting device Additional boiler assistant operator?: No Type of Anesthesia: General/Regional RN Documented Start/Stop Times: Operation Date: 05/05/25 10:00 Case Time Into Pre-Op 05/05/25 07:45 Anesthesia Start 05/05/25 10:49 Into Room 05/05/25 10:49 Procedure Start 05/05/25 11:06 Procedure End 05/05/25 12:55 Anesthesia End 05/05/25 12:59 Out of Room 05/05/25 12:59 Into Recovery 05/05/25 13:00 Into Phase II Recovery 05/05/25 14:25 Out of Recovery 05/05/25 14:25 Out of Phase II 05/05/25 15:56 Procedure Start Time: 11:06 Procedure Stop Time: 12:55 Select all DRAINS/GRAFTS/IMPLANTS that apply: Graft Graft details: [place] of calcaneal bone graft, harvest of bone marrow aspirate concentrate and Implanted device Implanted device details: [facility] MPJ plate and screws Special Medications: per anesthesia Estimated Blood Loss: 25 mL Fluids Replaced: per anesthesia Specimen collected: No Description of surgery: Indications For Operation: Mr. Baca is a 70-year-old male who was admitted to [facility] for left foot surgery due to continued pain and osteoarthritis to the big toe joint as well as hammertoe deformities to the left foot. Patient is well-known to my practice and we have been treating him conservative for the past 1-1/2 years with sugar modification, taping, wide shoe gear, [id number] inserts, nonsteroid anti-inflammatories and steroid injections. Due to the patient continue deformity and pain especially in the big toe joint and lesser digits at the left foot we discussed surgical intervention. With coming up to a plan in reviewing the patient's radiographs we decided to move forward with the above procedure. Chart review and consent was signed. Patient did have formal consultation in office with all risk and benefits discussed with him in great detail. Due to continued pain with shoe gear as well as deformity to the left foot it was deemed necessary at this time to take the patient to operating room performed above procedure to help give the patient a more anatomical foot structure and to decrease his constant pain. The nature of the problem, anticipated procedures, postop recovery/convalences and risk/complications include but not limited to infection, wound healing complications, digital amputation, hypertrophic scarring, numbness, tingling, chronic pain, CRPS, over and under correction, recurrence of deformity, DVT and or PE and the need for further surgery have been discussed in great detail with the patient. All questions have been answered to the patient's satisfaction. There are no guarantees given as to the outcome of the procedure. Description of Procedure: Under mild sedation, the patient was brought into the operating room and placed on the operating table in supine position. Once the patient was under general anesthesia with a range mask airway, the left lower extremity was blocked prior to the procedure by anesthesia in the PACU receiving a popliteal and adductor block. Please see anesthesia notes for further detail. Next, a well-padded thigh tourniquet was applied to the left lower extremity. Next, the left lower extremity was prepped and draped in normal aseptic manner. Next, a timeout was then undertaken verifying the correct patient, extremity, visibility of preoperative markings, availability of the equipment. Procedure #1: Bone marrow aspirate concentrate harvest, left lower extremity (CPT code: 93318) Next, attention was directed to the left extremity. Using the [place] needle and mallet the trocar of the needle was placed on the lateral side of the calcaneus and inserted. Approximately 60 cc of bone marrow aspirate concentrate were harvested and passed the back table to be spun down to be used later in the case. Stab incision was flushed with copious normal saline. Next, attention was directed to the left lower extremity. Using a foreign Esmarch, left lower extremity was exsanguinated and elevated to 60 degrees for 1 minute. Procedure #2: [place] of calcaneal bone graft, left lower extremity (CPT code: 84131) Next, attention was directed to the lateral wall of the calcaneus at the level of the previous incision. Using a #15 blade a 1 cm incision was placed. Continued blunt dissection was carried down to the lateral calcaneal wall. Using the Satiety bone graft harvester 6 mm in diameter, less than 5 cc of autograft/bone graft harvest was obtained and passed the back table to be used in the first metatarsal phalangeal joint arthrodesis portion of the surgery. The incision was flushed with copious normal saline. The skin was reapproximated closed using 3-0 nylon in simple erupted suture technique. Procedure #3: First metatarsophalangeal joint arthrodesis, left lower extremity (CPT code: 97174) Next, attention was directed to the dorsal aspect of the first metatarsal phalangeal joint. Using a sterile skin marker, the incision was marked out medial to the extensor looses longus tendon. Next using a #15 blade, a full-thickness tissue down to subcutaneous tissue was performed. Continued blunt dissection was carried down to expose the extensor hallucis longus tendon. The tendon was identified and retracted laterally, using the #15 blade a full-thickness vision down to bone was obtained with all interrupting vessels cauterized as necessary. Continue sharp dissection was carried down and around the joint and a capsulotomy was performed exposing the head of the first metatarsal and base of the proximal phalanx. There showed evidence of approximately 90% articular loss on both areas. Once exposure was obtained there was evidence of a brachii phalangeal to the proximal phalanx of the hallux. Next a 15 to 20 degree wedge cut was taken out of the base of the proximal phalanx to allow for a more rectus hallux allowing the toe to sit with the nail dorsally and parallel to the second digit. Using the cup and cone reamers, a 21 mm reamer was obtained. Reaming of the head of the first metatarsal and base of the proximal phalanx was carried out with guidewire per the manufactures recommendation with the rep in the room. After reaming was completed the area was flushed with copious normal saline. The toe was temporary placed in good position with excellent apposition. Next, the head of the first metatarsal and base of the proximal phalanx were fenestrated with a 2 oh drill bit, followed by application of the autograft that was obtained earlier in the case. The hallux was placed in a neutral position, with approximately 10 to 15 degrees of dorsiflexion with approximately 5 to 10 degrees of valgus as well as parallel to the second digit of the left foot. The hallux was temporary fixated using a 6-2 K wire. Next, a hardware lead was placed under the foot and there showed excellent touch to the plate acting as a ground reactive forces that will help with ambulation. Next using the 4-hole template for the Satiety speed plate, the template was placed dorsally along the arthrodesis site which showed good placement proximally as well as distally across the joint. The speed plate was placed per the manufactures recommendation with the rep in the room and locked in place with 2 locking screws proximal and distally. The first metatarsophalangeal joint was put through range of motion and was not allowed to move due to good apposition and arthrodesis due to rigid hardware fixation. Next, the incision was flushed with copious normal saline. Procedure #4: Percutaneous flexor tenotomy and capsulotomy second digit and second metatarsal phalangeal joint, left lower extremity (CPT code: 46085/54925?T1) Next, attention was directed to the second digit at the level of the PIPJ and second metatarsal phalangeal joint. Using a 18-gauge needle a percutaneous flexor tenotomy was done at the plantar PIPJ of the second digit followed by a capsulotomy with the 18-gauge needle at the second metatarsal phalangeal joint. Audible release of the flexor and capsule was obtained and the second digit was more in a rectus position after this procedure. The stab incisions were flushed with copious normal saline. Procedure #5: Percutaneous flexor tenotomy and capsulotomy third digit and third metatarsophalangeal joint, left lower extremity (CPT code: 82621/24875?T2) Next, attention was directed to the third digit at the level of the PIPJ and third metatarsal phalangeal joint. Using a 18-gauge needle a percutaneous flexor tenotomy was done at the plantar PIPJ of the third digit followed by a capsulotomy with the 18-gauge needle at the third metatarsal phalangeal joint. Audible release of the flexor and capsule was obtained and the third digit was more in a rectus position after this procedure. The stab incisions were flushed with copious normal saline. Procedure #6: Percutaneous flexor tenotomy and capsulotomy of fourth digit and and fourth metatarsophalangeal joint, left lower extremity (CPT code: 43041/80835?T3) Next, attention was directed to the fourth digit at the level of the PIPJ and fourth metatarsal phalangeal joint. Using a 18-gauge needle a percutaneous flexor tenotomy was done at the plantar PIPJ of the fourth digit followed by a capsulotomy with the 18-gauge needle at the fourth metatarsal phalangeal joint. Audible release of the flexor and capsule was obtained and the fourth digit was more in a rectus position after this procedure. The stab incisions were flushed with copious normal saline. Procedure #7: Derotational arthroplasty, fifth digit, left lower extremity (CPT code: 67290?T4) Next, attention was directed to the fifth digit that showed evidence of a adductovarus deformity. Using a skin marker a football type incision was made from distal lateral to proximal medial. Using a #15 blade the football like incision was made removing the skin island with care not to violate the deep tendon. A capsulotomy was performed exposing the head of the proximal phalanx of the fifth digit. Using a sagittal saw and #15 blade, the head of the proximal phalanx was removed and passed the back table to be discarded. The incision was flushed with copious normal saline. The deep layer was reapproximated allowing the derotation of the fifth digit which was eventually reinforced into his new neutral position using 3-0 nylon interrupted suture technique. Next, the left thigh tourniquet was deflated and all bleeders were cauterized and ligated as necessary. Next, attention was directed to the dorsal 2nd, 3rd and 4th percutaneous capsulotomy incisions that were reapproximated and closed with 3-0 nylon in simple interrupted suture technique. Next, attention was directed to the plantar PIPJ 2nd, 3rd and 4th percutaneous flexor tenotomy incisions that were reapproximated closed with 3-0 nylon in simple interrupted suture technique. Next, attention was directed back to the first metatarsal phalangeal joint incision, the deep layer was reapproximated closed using 3-0 Vicryl in running locking suture technique. The subcutaneous layer was reapproximated and closed using 3-0 Vicryl in a running suture technique. The skin was reapproximated closed with 3-0 nylon in horizontal mattress suture technique. Procedure #8: Application of posterior splint, left lower extremity (CPT code: 70835) Next,the left lower extremity was wiped clean and patted dry. Platelet poor plasma was sprayed along all incisions to the left foot then all incisions were dressed with Betadine soaked Adaptic dry sterile dressing and a double layer Esposito AO splint at 90 degrees was donned to the left lower extremity. The patient tolerated the procedure and anesthesia well and apparent satisfactory condition and was transported to the PACU for further monitoring prior to discharge home. Vital signs stable and vascular status intact to all digits bilateral. Post Operative Plan: Weightbearing: Nonweightbearing to the left lower extremity with assistive knee scooter and or crutches. Full weightbearing right lower extremity. Antibiotics: 2 g Ancef through the IV DVT Prophylaxis: 81 mg aspirin [place]: None Dressing: Platelet poor plasma spray, Betadine soaked Adaptic, dry sterile dressing double or Esposito AO splint 90 degrees, left lower extremity X-Rays: Post-operative films taken on the operating room. Pain Medication: Oxycodone 5 mg, cyclobenzaprine 10 mg, Tylenol 650 mg Follow-up: Patient will follow-up at scheduled postoperative appointment Surgical Findings: 1. Evidence of 90% loss of first metatarsal head and proximal phalanx base, left foot 2. Well opposed arthrodesis, first metatarsal phalangeal joint, left foot 3. Successful derotation of the fifth digit, left foot Complications Complications: No Admit VTE Documentation VTE Present on Admission: No VTE Mechan Device Prophylaxis: SCD's VTE Pharm Prophylaxis ordered?: Yes
[2025-05-05] MEDS: Cefazolin 1 GM/5 ML Vial 2 GM IV (10:49)
[2025-05-05] MEDS: Lidocaine 1% (5 ml sdv) 5 ML Vial 4 ML IV (10:56)
[2025-05-05] MEDS: Thrombin 5,000 IU Kit (PSA) 5,000 IU Vial 5000 IU TOPICAL (11:28)
--- NOTE | 2025-05-05 13:05 | PCM.POST.ANE ---
Anesthesia: Postop Eval I Current Vital Signs Temperature: 98.2 F Pulse Rate: 54 Blood Pressure: 120/75 Respiratory Rate: 16 Pulse Ox: 98 Assessment Airway patent: Yes Spontaneous unlabored respirations: Yes nausea: No Vomiting: No Anesthesia Complication: No Fluid Hydration Crystalloid volume administer (ml): 900 Total IV fluid infused: 900 Progress Note Anesthesia document: Postop Eval 1 completed: Yes
== END 2025-05-05 15:57 | disposition home or self-care (01) ==
LOC: SDC 07:39 → AC 07:40
PROVIDERS: PCP Student in an Organized Health Care Education/Training Program; Referring Provider Podiatrist Foot & Ankle Surgery; Visit Provider Podiatrist Foot & Ankle Surgery
PROC: (CPT 28750; principal; 2025-05-05 09:45)
DX: M20.12 Hallux valgus (acquired), left foot (principal); M20.22 Hallux rigidus, left foot; M20.42 Other hammer toe(s) (acquired), left foot; M19.072 Primary osteoarthritis, left ankle and foot; N40.0 Benign prostatic hyperplasia without lower urinary tract symptoms; Z79.899 Other long term (current) drug therapy; Z87.891 Personal history of nicotine dependence
CPT/HCPCS: 28750; 38232; 28011 ×3; 28270 ×3; 28285; 64450; 64447; 36415; 73620; 76000; 82962; 83735; 87081; 88307; 88311; C1713; J2405; J3475